=== PATIENT | male | born 1945 | race Caucasian/White ===

== ENCOUNTER 2020-02-25 16:38 | Emergency (ER) | payer MEDICARE, SELFPAY ==
--- NOTE | 2020-02-25 16:46 | ECG_ITS ---
APPROVED REPORT Exam: Resting ECG HR:74 bpm ECG Measurements Heart Rate 74 AXES WV 170 P 33 QRSd 112 QRS -63 QT 392 T 69 QTc 435 <Conclusion> Normal sinus rhythm Left anterior fascicular block Abnormal ECG Electronically signed by : Edward Falk, 02/27/2020 18:05:45
[2020-02-25 16:48] VITALS: BP 155/68; PULSE 80; RESP 16; TEMP 36.8; O2SAT 16; BMI 36.9
--- NOTE | 2020-02-25 16:55 | XR_ITS ---
PROCEDURE: XR CHEST PORTABLE CLINICAL HISTORY: dizziness Dizziness COMPARISON: No exams were available for comparison FINDINGS: Mild cardiomegaly without failure. There are low lung volumes. The lungs are clear without infiltrates, suspicious nodules, or pleural effusions. No acute bony abnormalities. IMPRESSION: No acute findings. Dictated by: Khris Curtis MD 02/25/2020 17:50 Electronically signed by Khris Curtis MD in [facility] 02/25/2020 17:50
--- NOTE | 2020-02-25 16:56 | CT_ITS ---
PROCEDURE: CT HEAD/BRAIN WO CON CLINICAL INDICATION: dizziness Dizziness, confusion, weakness, history of stroke COMPARISON: No exams were available for comparison TECHNIQUE: Axial images obtained. All CT scans at the facility use one or more dose reduction, viz: automated exposure control, ma/kV adjustment per patient size (including targeted exams where dose is matched to indication, i.e. head), or iterative reconstruction technique. FINDINGS: No midline shift, mass effect, intracranial hemorrhage, hydrocephalus, or extra-axial fluid collection is evident. There is generalized atrophy with hypoattenuation of the periventricular white matter consistent with microangiopathic changes. The calvarium has an unremarkable appearance. No mastoid effusion. No sinus air-fluid level. There is a nodular soft tissue density in the right parietal scalp at approximately 1 cm IMPRESSION: 1. No acute intracranial findings. 2. Soft tissue density in the right parietal scalp nonspecific and could be related to scarring. Neoplasm or contusion is included in the differential diagnosis. Dictated by: Khris Curtis MD 02/25/2020 22:27 Electronically signed by Khris Curtis MD in [facility] 02/25/2020 22:27
[2020-02-25 16:59] VITALS: BP 155/68; PULSE 74; O2SAT 94
[2020-02-25 17:07] LABS: Basophils % 0.6 % (0.1-2.0); Eosinophils # 0.2 K/mm3 (0.0-0.4); Eosinophils % 2.4 % (0.1-12.0); Hematocrit 47.7 % (42.0-52.0); Hemoglobin 15.7 g/dL (14.1-18.0); Lymphocytes # 2.4 K/mm3 (0.7-4.5); Lymphocytes % 29.5 % (10-50); Mean Corpuscular HGB Conc 32.9 g/dL (31.8-35.4); Mean Corpuscular Hemoglobin 29.8 pg (27.0-31.2); Mean Corpuscular Volume 90.6 fl (80-94); Mean Platelet Volume 8.2 fl (7.4-10.4); Monocytes # 0.5 K/mm3 (0.1-1.0); Monocytes % 6.6 % (1.7-9.3); Neutrophils # 4.9 K/mm3 (1.8-7.8); Platelet Count 268 K/mm3 (142-424); Red Blood Count 5.26 M/mm3 (4.60-6.20); Red Cell Distribution Width 13.6 % (11.5-17.5)
--- NOTE | 2020-02-25 17:11 | PC.NURSE ---
PT GONE OVER HEAD CT
[2020-02-25 17:14] LABS: Alanine Aminotransferase 35 U/L (12-78); Albumin Level 4.7 g/dl (3.5-5.0); Albumin/Globulin Ratio 1.5 (1.1-1.8); Alkaline Phosphatase 57 U/L (38-126); Anion Gap 14.5 mEq/L (5-15); Aspartate Amino Transferase 29 U/L (17-59); Bilirubin,Total 0.5 mg/dl (0.2-1.3); Blood Urea Nitrogen 35 mg/dl (9-20); Calcium 10.1 mg/dl (8.4-10.2); Carbon Dioxide 26 mmol/L (22.0-30.0); Chloride 101 mmol/L (98-107); Creatinine Clearance Estimated 86 mL/min (50-200); Estimated Glomerular Filt Rate 54 ml/min (>60); GFR (African American) 65 ML/MIN (>60); Globulin 3.1 g/dL (1.3-3.2); Glucose 178 mg/dl (74-100); Potassium 4.5 mmoL/L (3.5-5.1); Sodium 137 mmol/L (136-145); Total Protein,Serum 7.8 g/dl (6.3-8.2)
--- NOTE | 2020-02-25 17:27 | PC.NURSE ---
Pt returned from rad.
[2020-02-25 17:32] LABS: Troponin I < 0.01 ng/ml (0.00-0.034)
[2020-02-25 18:12] LABS: Microscopic, Urine URINE MICROSCOPIC (MICROSCOPIC)
[2020-02-25 18:26] LABS: Appearance,Urine CLEAR (Clear); Bilirubin,Urine Negative (Negative); Blood, Urine Negative (Negative); Color,Urine YELLOW (Yellow); Glucose,Urine (UA) Negative (Negative); Ketones,Urine Negative (Negative); Leukocyte Esterase,Urine Negative (Negative); Nitrate,Urine Negative (Negative); PH,Urine 5.5 (5.0-8.5); Protein,Urine Negative (Negative); Specific Gravity, Urine >= 1.030 (1.005-1.030); Urobilinogen,Urine 0.2 EU/dl (0.2)
--- NOTE | 2020-02-25 18:47 | HMH.EDDIZZ ---
ED Disposition Clinical Impression: Benign paroxysmal positional vertigo Disposition: Home, Self-Care Condition on Discharge: Good Instructions: Vertigo Referrals: Edward Miller [Primary Care Provider] - - Critical Care Critical Care Time: No Attestation: On 02/25/20, the high probability of a clinically significant, sudden or life threatening deterioration of the following system(s) required my full and direct attention, intervention and personal management. The time I documented below is in addition to time spent performing reported procedures but includes the following listed in this critical care notation. Medical Decision Making - Medical Records Medical records reviewed: Yes: I reviewed the patient's medical records. - Mannie Inquiry Pt receiving controlled substance: No Vital Signs: 02/25/20 16:48 02/25/20 16:59 Temperature 98.2 F Temperature Source Oral Pulse Rate [Left Radial] 80 74 Respiratory Rate 16 Blood Pressure [Right Arm] 155/68 H 155/68 H Blood Pressure Mean [Right Arm] 97 97 Blood Pressure Source [Right Arm] Automatic Cuff Blood Pressure Position [Right Arm] Sitting Sitting 02 Sat by Pulse Oximetry 16 L 94 L Oxygen Delivery Method Room Air Room Air - Lab Data Lab results reviewed: Yes: I reviewed the patient's lab results. Lab Results 02/25/20 16:50: WBC 8.0, RBC 5.26, Hgb 15.7, Hct 47.7, MCV 90.6, MCH 29.8, MCHC 32.9, RDW 13.6, Plt Count 268, MPV 8.2, Neut % (Auto) 61.0, Lymph % (Auto) 29.5, [place] % (Auto) 6.6, Eos % (Auto) 2.4, Baso % (Auto) 0.6, Neut # (Auto) 4.9, Lymph # (Auto) 2.4, [place] # (Auto) 0.5, Eos # (Auto) 0.2, Baso # (Auto) 0.0 02/25/20 16:50: Sodium 137, Potassium 4.5, Chloride 101, Carbon Dioxide 26, Anion Gap 14.5, BUN 35 H, Creatinine 1.30 H, Estimated Creat Clear 86, Estimated GFR 54 L, Est GFR ( Amer) 65, Glucose 178 H, Calcium 10.1, Total Bilirubin 0.5, AST 29, ALT 35, Alkaline Phosphatase 57, Troponin I < 0.01, Total Protein 7.8, Albumin 4.7, Globulin 3.1, Albumin/Globulin Ratio 1.5 02/25/20 17:55: Urine Color Yellow, Urine Appearance Clear, Urine pH 5.5, Ur Specific [place] >= 1.030, Urine Protein Negative, Urine Glucose (UA) Negative, Urine Ketones Negative, Urine Blood Negative, Urine Nitrate Negative, Urine Bilirubin Negative, Urine Urobilinogen 0.2, Ur Leukocyte Esterase Negative Result diagrams: 02/25/20 16:50 02/25/20 16:50 Orders (Tests/Meds): ORDERS Category Date Time Status CT head/brain wo con Stat Cat Scan 02/25/20 16:56 Taken Troponin I Q3H Lab 02/25/20 20:00 Ordered Troponin I Q3H Lab 02/25/20 23:00 Ordered Urinalysis and Microscopic Stat Lab 02/25/20 17:55 Results - CT Data CT Scan: Head Time Received: 16:00 Preliminary Findings: Normal/NAD - ECG Data Tracing #1 Normal Sinus Rhythm: Yes Dizzy HPI - General Chief Complaint: Dizziness Stated Complaint: dizzy,confussed Time Seen by Provider: 02/25/20 16:38 Mode of Arrival: Ambulatory Limitations: No Limitations Description of Symptoms (Recalled from ER Triage Doc. by RN): to ed per pvt car with c/o dizziness lightheaded pt seen by dr miller yesterday and given script for antivert. pt states he felt like the medication helped yesterday but has had no relief today. pt states today he was trying to remove a gas cap, became confused wasn't sure how to turn the cap then became dizzy. denies any other c/o at present. - History of Present Illness HPI Narrative: 4-year-old gentleman presents the ED with lightheadedness and dizziness. He states he was seen by his primary care and they sent him here to get evaluated. Is Dr. Gabriel did give him meclizine yesterday and he is only taken 1 tablet and really has not noticed a difference in the lightheadedness or dizziness. He does not complain of a vertigo sensation does not feel drawn towards the center of the room and nothing feels like it spinning he just feels that he is lightheaded and he describes it as a
[2020-02-25 18:50] LABS: Bacteria,Urine Trace /lpf; Squamous Epithelial Cell,Urine Occasional #/hpf (0-5); WBC,Urine Occasional #/hpf (0-3)
[2020-02-25 18:58] VITALS: BP 111/71; PULSE 76; RESP 20; TEMP 36.6; O2SAT 97
== END 2020-02-25 19:00 | disposition home or self-care (01) ==
PROVIDERS: Emergency Provider Family Medicine; PCP Internal Medicine
DX: H81.10 Benign paroxysmal vertigo, unspecified ear (principal); I10 Essential (primary) hypertension; E11.9 Type 2 diabetes mellitus without complications; Z79.84 Long term (current) use of oral hypoglycemic drugs; Z79.899 Other long term (current) drug therapy
CPT/HCPCS: 70450; 71045; 80053; 81001; 84484; 85025; 93005; 99284

== ENCOUNTER → 2021-06-07 10:47 | Outpatient (CLI) | payer MEDICARE, SELFPAY ==
--- NOTE | 2021-06-07 10:52 | XR_ITS ---
PROCEDURE: XR KNEE LT 3V CLINICAL INDICATION: LT KNEE PAIN COMPARISON: No exams were available for comparison FINDINGS: No fracture or dislocation. No lytic or blastic change. There is normal mineralization. There are mild tricompartmental osteoarthritic changes with slight decrease in the joint space and small osteophytes. There may be a small suprapatellar effusion. Other findings:None. IMPRESSION: Mild osteoarthritis Dictated by: Khris Curtis MD 06/07/2021 11:15 Khris Curtis MD in [facility] 06/07/2021 11:15
== END ==
PROVIDERS: PCP Internal Medicine; Visit Provider Internal Medicine
DX: M25.562 Pain in left knee (principal)
CPT/HCPCS: 73562

== ENCOUNTER 2021-09-20 14:00 | Emergency (ER) | payer MEDICARE, SELFPAY ==
--- NOTE | 2021-09-20 14:17 | XR_ITS ---
PROCEDURE: XR HIP LT 2-3V W/PELVIS CLINICAL INDICATION: PAIN COMPARISON: No exams were available for comparison FINDINGS: No fracture or dislocation is evident. No significant degenerative change. No lytic or blastic change. Unremarkable soft tissues. IMPRESSION: Negative left hip Dictated by: Khris Curtis MD 09/20/2021 15:02 Khris Curtis MD in [facility] 09/20/2021 15:02
[2021-09-20 14:41] VITALS: BP 160/92; PULSE 73; RESP 19; TEMP 37; O2SAT 98; BMI 35.8
--- NOTE | 2021-09-20 15:24 | HMH.EDUTC ---
[facility] [place] Clinical Impression: Hip pain Disposition: Home, Self-Care Condition on Discharge: Good Instructions: Help for Hip Pain, DI for Hip Pain Additional Instructions: *Remember you had a Toradol shot in the clinic today, which is similar to Motrin no motrin tonight *Not additional anti-inflammatory like motrin, aleve, advil with the above amount of ibuprofen. You can still take Tylenol every 4 hours as needed if you need something else for pain *Ice 20 minutes every 2 hours for the first 48 hours after the initial injury followed by moist heat every 20 minutes 3-4 times a day to affected area *Keep this area active, no movement leads to more stiffness, However take it easy and avoid heavy lifting pushing or pulling *Follow up with you family doctor if no improvement for further treatment Follow up with your Family Doctor if no improvement Referrals: Edward Falk [Primary Care Provider] - As needed Time of Disposition: 16:25 Medical Decision Making - Mannie Inquiry Pt receiving controlled substance: No Mannie was queried for this patient: No Vital Signs: 09/20/21 14:41 09/20/21 16:36 Temperature 98.6 F 98.6 F Temperature Source Oral Oral Pulse Rate 73 Pulse Rate [Left Radial] 73 Respiratory Rate 19 19 Blood Pressure 160/92 H Blood Pressure [Right Arm] 160/92 H Blood Pressure Mean [Right Arm] 114 Blood Pressure Source [Right Arm] Automatic Cuff Blood Pressure Position [Right Arm] Sitting 02 Sat by Pulse Oximetry 98 Oxygen Delivery Method Room Air Room Air Orders (Tests/Meds): ED MEDICATIONS Discontinued Medications Generic Name Dose Route Start Last Admin Trade Name Kevin PRN Reason Stop Dose Admin Ketorolac Tromethamine 15 mg 09/20/21 16:23 09/20/21 16:30 Ketorolac 60mg/2ml Vial IM 09/20/21 16:24 15 mg ONCE ONE Administration Methylprednisolone Sodium Succinate 62.5 mg 09/20/21 16:23 09/20/21 16:30 Methylprednisolone Sod Succ 125mg Vial IM 09/20/21 16:24 62.5 mg ONCE ONE Administration - Radiology Data #1 Image(s): Hip Image Reviewed: Yes I have reviewed radiologist's interpretation Negative left hip Medical Decision Narrative: Patient states that he has naproxen at home that he was given from his PCP and will take that until he can get into his PCP Patient states that pain is much better after injection [facility] [place] HPI - General Stated complaint: lt hip pain Time Seen by Provider: 09/20/21 15:24 Mode of Arrival: Ambulatory Source of Information: Patient Limitations: No Limitations Description of Symptoms (Recalled from Triage Doc. by RN): c/o pain in left hip since yesterday, denies any injury HEENT Symptoms (Recalled from RN notes): No Resp Symptoms (Recalled from RN notes): No Skin Symptoms (Recalled from RN notes): No MS Symptoms (Recalled from RN notes): Yes Functional Status (Recalled from RN notes): na - History of Present Illness Provider Complaint: Patient states that he has been walking alot over the last week or so he has been hunting and not sure if he has over done it State that he has been having pain on and off in his left hip denies known injury State that he took some over the counter medicaiton and it was doing better but earlier he bent over and was squatted down and it started hurting again so he came in to get it checked out Denies falling denies loss of control of bowel or bladder - Related Data Home Medications Medication Instructions Recorded Confirmed atenolol 25 mg tablet 25 mg PO DAILY tab 05/27/18 02/03/19 atorvastatin 80 mg tablet 80 mg PO DAILY tab 05/27/18 02/03/19 clopidogrel 75 mg tablet 75 mg PO DAILY tab 05/27/18 02/03/19 fluticasone propionate 50 1 spray INTRANASAL DAILY g 05/27/18 02/03/19 mcg/actuation nasal spray,suspension glipizide 10 mg tablet 10 mg PO BID 05/27/18 02/03/19 hydrochlorothiazide 25 mg tablet 25 mg PO QAM 05/27/18 02/03/19 insulin glargine 100 unit/mL 36 unit SUB-Q QHS m
[2021-09-20 16:36] VITALS: BP 160/92; PULSE 73; RESP 19; TEMP 37; O2SAT 98
== END 2021-09-20 16:44 | disposition home or self-care (01) ==
LOC: ER 14:05 → UTC 14:15
PROVIDERS: Emergency Provider Nurse Practitioner; PCP Internal Medicine
DX: M25.552 Pain in left hip (principal); E11.9 Type 2 diabetes mellitus without complications; I10 Essential (primary) hypertension
CPT/HCPCS: G0463; 73502; 96372; 99202

== ENCOUNTER 2021-10-02 10:05 | Emergency (ER) | payer MEDICARE, SELFPAY ==
[2021-10-02 10:05] VITALS: BP 162/72; PULSE 62; RESP 18; TEMP 36.6; O2SAT 98; BMI 35.8
--- NOTE | 2021-10-02 10:19 | HMH.EDGENADL ---
ED Disposition Clinical Impression: Vasovagal syncope Sacral fracture Qualifiers: Encounter type: initial encounter Zone of sacrum fracture: unspecified portion of sacrum Fracture type: closed Qualified Code(s): S32.10XA - Unspecified fracture of sacrum, initial encounter for closed fracture Disposition: Home, Self-Care Condition on Discharge: Fair Instructions: DI for Syncope in Adults (Fainting), DI for Vertebral Fracture Additional Instructions: Take Percocet as needed for pain. Sit on a couple of pillows, try to lay on your side to avoid pressure on your tailbone. See your doctor in the office this week. Return to the emergency department if fainting returns. Additional instructions for CONTROLLED SUBSTANCES: You have been prescribed a medication that is a controlled substance. Controlled substances include pain medications known as opiates and sedative nerve medications known as benzodiazepines. Tramadol, fioricet, and gabapentin are also controlled substances. Some common opiates include: Codeine (such as Tylenol #3) Hydrocodone (Vicodin, Lortab, Lorcet, [place]) Oxycodone (Percocet, Percodan, Oxycodone, Oxy IR) Some common benzodiazepines include: Diazepam (Valium) Lorazepam (Ativan) Alprazolam (Xanax) Clonazepam (Klonopin) Oxazepam (Serax) All of these controlled substances are highly addictive and frequently abused. Misuse can and frequently does lead to addiction as well as overdose and . Medication should be stored in a locked cabinet or other secure storage unit. Do not store the medication in a motor vehicle. Short term supplies, 3 days or less, are prescribed because of the highly addictive nature of the medication. Any of the controlled substance medication NOT taken should be disposed of properly and NOT SAVED. The recommended method of disposing of unused medications is: Place the medicines in a sealable plastic bag. If the medicine is a solid, crush it or add water to dissolve it. Add something undesirable (cat litter, coffee grounds, etc.) Dispose of sealed bag in household trash Do not flush or pour unused medicines down a sink or drain. Controlled substances should not be shared, given away or sold. Because of the addictive nature and frequent abuse, these medications are sometimes stolen. These medications should be kept in a safe place where they cannot be stolen. Do not keep them in your car or purse. Lost or stolen prescriptions for controlled substances WILL NOT BE REFILLED in this emergency department, regardless of whether a police report was filed. Prescriptions: Oxycodone HCl/Acetaminophen [Percocet 5/325mg tablet] 1 tab PO Q6HP PRN #15 tab PRN Reason: Moderate To Severe Pain Transmission Status: Sent to [facility] Referrals: Provider,Referral, [Referring] - - Critical Care Critical Care Time: No Attestation: On , the high probability of a clinically significant, sudden or life threatening deterioration of the following system(s) required my full and direct attention, intervention and personal management. The time I documented below is in addition to time spent performing reported procedures but includes the following listed in this critical care notation. Medical Decision Making - Mannie Inquiry Pt receiving controlled substance: Yes Mannie was queried for this patient: Yes Risks and benefits of using a controlled substance: were discussed with pt by me Vital Signs: 10/02/21 10:05 Temperature 98 F Temperature Source Oral Pulse Rate [Radial] 62 Respiratory Rate 18 Blood Pressure [Right Arm] 162/72 H Blood Pressure Mean [Right Arm] 102 Blood Pressure Position [Right Arm] Sitting 02 Sat by Pulse Oximetry 98 Oxygen Delivery Method Room Air - Lab Data Lab Results 10/02/21 10:22: WBC 12.3 H, RBC 5.58, Hgb 16.4, Hct 52.0, MCV 93.1, MCH 29.3, MCHC 31.5 L, RDW 13.9, Plt Count 325, MPV 8.5, Neut % (Auto) 72.9, Lymph % (
--- NOTE | 2021-10-02 10:21 | XR_ITS ---
PROCEDURE INFORMATION: Exam: XR Chest Exam date and time: 10/02/2021 10:21 AM Age: 75 years old Clinical indication: Shortness of breath; Additional info: ? Syncopal epi TECHNIQUE: Imaging protocol: XR of the chest. Views: 1 view. COMPARISON: CR XR CHEST PORTABLE 02/25/2020 5:01 PM FINDINGS: Lungs: Low lung volumes with no focal airspace disease. Pleural spaces: Unremarkable. No pleural effusion. No pneumothorax. Heart/Mediastinum: Cardiomediastinal silhouette is within normal limits. Bones/joints: Unremarkable. IMPRESSION: Low lung volumes with no acute cardiopulmonary abnormality.
--- NOTE | 2021-10-02 10:23 | ECG_ITS ---
APPROVED REPORT Exam: Resting ECG HR:60 bpm ECG Measurements Heart Rate 60 AXES [place] 170 P 54 QRSd 128 QRS -79 QT 430 T 37 QTc 430 Conclusion Sinus rhythm with premature atrial complexes Left axis deviation Nonspecific intraventricular block Abnormal ECG Electronically signed by : Thomas Stephenson MD 10/02/2021 15:34:55
[2021-10-02 10:30] VITALS: BP 136/67; PULSE 67
--- NOTE | 2021-10-02 10:30 | PC.NURSE ---
PT WRITHING ON STRETCHER, DIAPHORETIC. C/O INCREASE PAIN.
--- NOTE | 2021-10-02 10:30 | CT_ITS ---
PROCEDURE INFORMATION: Exam: CT Lumbar Spine Without Contrast Exam date and time: 10/02/2021 10:30 AM Age: 75 years old Clinical indication: Low back pain TECHNIQUE: Imaging protocol: Computed tomography images of the lumbar spine without contrast. Radiation optimization: All CT scans at this facility use at least one of these dose optimization techniques: automated exposure control; mA and/or kV adjustment per patient size (includes targeted exams where dose is matched to clinical indication); or iterative reconstruction. COMPARISON: CR XR HIP LT 2-3V W/PELVIS 09/20/2021 2:16 PM FINDINGS: Vertebrae: Within normal limits. Discs/Spinal canal/Neural foramina: Degenerative changes produce at least moderate spinal canal stenosis at L4-L5 and mild to moderate canal stenosis at T11-T12. At least moderate bilateral foraminal stenosis at L3-L4 and L4-L5. Sacrum/coccyx: Acute appearing nondisplaced fracture involving the posterior spinous process of the sacrum at the level of S2-S3. No traumatic malalignment. Soft tissues: Unremarkable. IMPRESSION: 1. Acute appearing nondisplaced fracture involving the posterior spinous process of the sacrum at the level of S2-S3. 2. Degenerative changes produce at least moderate spinal canal stenosis at L4-L5 and at least moderate neural foraminal stenosis bilaterally at L3-L4 and L4-L5.
[2021-10-02 10:34] LABS: Basophils # 0.1 K/mm3 (0-0.2); Basophils % 0.9 % (0.1-2.0); Eosinophils # 0.2 K/mm3 (0.0-0.4); Eosinophils % 1.2 % (0.1-12.0); Hemoglobin 16.4 g/dL (14.1-18.0); Lymphocytes # 2.5 K/mm3 (0.7-4.5); Lymphocytes % 19.8 % (10-50); Mean Corpuscular HGB Conc 31.5 g/dL (31.8-35.4); Mean Corpuscular Hemoglobin 29.3 pg (27.0-31.2); Mean Corpuscular Volume 93.1 fl (80-94); Mean Platelet Volume 8.5 fl (7.4-10.4); Monocytes # 0.6 K/mm3 (0.1-1.0); Monocytes % 5.2 % (1.7-9.3); Neutrophils % 72.9 % (37.0-80.0); Platelet Count 325 K/mm3 (142-424); Red Blood Count 5.58 M/mm3 (4.60-6.20); Red Cell Distribution Width 13.9 % (11.5-17.5); White Blood Count 12.3 K/mm3 (4.8-10.8)
[2021-10-02 10:38] LABS: Chloride 96 mmol/L (98-107); Sodium 134 mmol/L (136-145)
--- NOTE | 2021-10-02 10:39 | CT_ITS ---
PROCEDURE INFORMATION: Exam: CT Abdomen And Pelvis With Contrast Exam date and time: 10/02/2021 10:39 AM Age: 75 years old Clinical indication: Injury or trauma; Fall; Blunt; Lower; Additional info: Injury from fall- patient passed out at home -- back pain and chest pain TECHNIQUE: Imaging protocol: Computed tomography of the abdomen and pelvis with contrast. Radiation optimization: All CT scans at this facility use at least one of these dose optimization techniques: automated exposure control; mA and/or kV adjustment per patient size (includes targeted exams where dose is matched to clinical indication); or iterative reconstruction. Contrast material: ISOVUE; Contrast volume: 50 ml; Contrast route: IV; COMPARISON: CR XR HIP LT 2-3V W/PELVIS 09/20/2021 2:16 PM FINDINGS: Liver: Normal. No mass. Gallbladder and bile ducts: Normal. No calcified stones. No ductal dilation. Pancreas: Normal. No ductal dilation. Spleen: Normal. No splenomegaly. Adrenal glands: Normal. No mass. Kidneys and ureters: Normal. No hydronephrosis. Stomach and bowel: Unremarkable. No obstruction. No mucosal thickening. Appendix: No evidence of appendicitis. Intraperitoneal space: Unremarkable. No free air. No significant fluid collection. Vasculature: Mild burden of atherosclerotic plaque in the abdominal aorta and branch vessels. No aneurysm. Lymph nodes: Unremarkable. No enlarged lymph nodes. Urinary bladder: Unremarkable as visualized. Reproductive: Prostatomegaly. Bones/joints: Redemonstrated acute fracture involving the posterior spinous process of the sacrum, better evaluated on CT of the lumbar spine. Soft tissues: Small left inguinal hernia containing fat and a portion of the bladder dome. Gynecomastia. IMPRESSION: 1. No acute findings in the abdomen or pelvis. 2. Redemonstrated acute fracture involving the posterior spinous process of the sacrum, better evaluated on CT of the lumbar spine. 3. Small left inguinal hernia contains a portion of the bladder dome.
--- NOTE | 2021-10-02 10:40 | CT_ITS ---
PROCEDURE INFORMATION: Exam: CTA Chest With Contrast Exam date and time: 10/02/2021 10:40 AM Age: 75 years old Clinical indication: Injury or trauma; Fall; Blunt trauma (contusions or hematomas); Injury date: 10/02/21; Additional info: Chest injury from fall-- passed out and fell- pain in lower back and chest TECHNIQUE: Imaging protocol: Computed tomographic angiography of the chest with contrast. 3D rendering (Not supervised by radiologist): MIP and/or 3D reconstructed images were created by the technologist. Radiation optimization: All CT scans at this facility use at least one of these dose optimization techniques: automated exposure control; mA and/or kV adjustment per patient size (includes targeted exams where dose is matched to clinical indication); or iterative reconstruction. Contrast material: ISOVUE; Contrast volume: 50 ml; Contrast route: INTRAVENOUS (IV); COMPARISON: CR XR CHEST PORTABLE 10/02/2021 10:32 AM FINDINGS: Pulmonary arteries: Normal. No pulmonary emboli. Aorta: Unremarkable. No aortic aneurysm. No aortic dissection. Lungs: Left lower lobe calcified granuloma. Right upper lobe calcified granuloma. No focal airspace disease. Pleural spaces: Unremarkable. No pneumothorax. No pleural effusion. Heart: Unremarkable. No cardiomegaly. No pericardial effusion. Lymph nodes: Calcified left hilar lymph node. Bones/joints: Unremarkable. No acute fracture. Soft tissues: Unremarkable. IMPRESSION: No pulmonary emboli or other acute cardiopulmonary pathology identified.
[2021-10-02 10:42] LABS: Blood Urea Nitrogen 45 mg/dl (9-20); Calcium 9.7 mg/dl (8.4-10.2); Carbon Dioxide 30 mmol/L (22.0-30.0); Creatinine Clearance Estimated 82 mL/min (50-200); Estimated Glomerular Filt Rate 54 ml/min (>60); GFR (African American) 65 ML/MIN (>60); Glucose 212 mg/dl (74-100)
--- NOTE | 2021-10-02 10:45 | ECG_ITS ---
APPROVED REPORT Exam: Resting ECG HR:57 bpm ECG Measurements Heart Rate 57 AXES MD 156 P QRSd 126 QRS -69 QT 434 T 21 QTc 422 Conclusion Sinus bradycardia Left axis deviation Nonspecific intraventricular block Abnormal ECG Electronically signed by : Thomas Stephenson MD 10/02/2021 15:34:46
--- NOTE | 2021-10-02 10:46 | CT_ITS ---
PROCEDURE INFORMATION: Exam: CT Head Without Contrast Exam date and time: 10/02/2021 10:46 AM Age: 75 years old Clinical indication: Syncope and collapse; Additional info: Syncope, fall TECHNIQUE: Imaging protocol: Computed tomography of the head without contrast. Radiation optimization: All CT scans at this facility use at least one of these dose optimization techniques: automated exposure control; mA and/or kV adjustment per patient size (includes targeted exams where dose is matched to clinical indication); or iterative reconstruction. COMPARISON: CT HEAD/BRAIN WO CON 02/25/2020 5:09 PM FINDINGS: Brain: Patchy hypoattenuation in the periventricular and subcortical white matter, consistent with chronic small vessel ischemia. No CT evidence of acute ischemia. No acute hemorrhage. No mass effect. Areas of low density in the left frontal and right parietal lobes are favored to reflect areas of remote encephalomalacia, though are new from 02/25/2020. Cerebral ventricles: No ventriculomegaly. Paranasal sinuses: Visualized sinuses are unremarkable. No fluid levels. Mastoid air cells: Visualized mastoid air cells are well aerated. Bones/joints: Unremarkable. No acute fracture. Soft tissues: Unremarkable. IMPRESSION: 1. No acute intracranial abnormality. Please note that MRI is more sensitive for early changes of acute ischemia. 2. Areas of low density in the left frontal and right parietal lobes are favored to reflect areas of remote encephalomalacia, though are new from 02/25/2020.
[2021-10-02 10:55] LABS: Troponin I < 0.01 ng/ml (0.00-0.034)
[2021-10-02 11:00] VITALS: BP 136/67; PULSE 68
[2021-10-02 11:23] LABS: POC Glucose,Bedside 215 (70-110)
[2021-10-02 12:15] VITALS: BP 166/74; PULSE 61; RESP 18
[2021-10-02 13:00] VITALS: BP 120/69; PULSE 58
--- NOTE | 2021-10-02 13:09 | PC.NURSE ---
PT AMBULATED UP TO THE BATHROOM WITH NO PROBLEMS
[2021-10-02 14:16] VITALS: BP 157/70; PULSE 66; RESP 18; TEMP 36.6
[2021-10-02 17:13] LABS: Troponin I < 0.01 ng/ml (0.00-0.034)
== END 2021-10-02 15:21 | disposition home or self-care (01) ==
PROVIDERS: Emergency Provider Emergency Medicine; PCP Internal Medicine
DX: S32.10XA Unspecified fracture of sacrum, initial encounter for closed fracture (principal); R42 Dizziness and giddiness; W01.0XXA Fall on same level from slipping, tripping and stumbling without subsequent striking against object, initial encounter; Y92.018 Other place in single-family (private) house as the place of occurrence of the external cause; I10 Essential (primary) hypertension; E11.9 Type 2 diabetes mellitus without complications
CPT/HCPCS: 70450; 71045; 71275; 72131; 74177; 80048; 82962; 84484; 85025; 93005; 93041; 96374; 96375; 96376; 99283; J2405; Q9967

== ENCOUNTER → 2022-09-26 10:49 | Outpatient (CLI) | payer MEDICARE, SELFPAY ==
--- NOTE | 2022-09-26 10:56 | XR_ITS ---
FINAL REPORT TECHNIQUE: Chest PA & Lateral CLINICAL HISTORY: RIGHT CHEST PAIN , S/P FALL 09/24/22, patient states he had a thermos in his shirt and he fell on that, pain on anterior right lower and into side FINDINGS: 2 views of the chest were performed. The heart size is normal. The mediastinum is within normal limits. The lungs are underinflated. There is no acute cardiopulmonary process. There are no pleural effusions. There is no pneumothorax. The bony thorax appears intact. IMPRESSION: No acute cardiopulmonary process. Reviewed, Interpreted and Dictated by Prabhakar Navarrete MD Transcribed by Guero Multani Authenticated and [facility]
--- NOTE | 2022-09-26 10:57 | XR_ITS ---
FINAL REPORT CLINICAL HISTORY: RIGHT CHEST PAIN , S/P FALL 09/24/22, patient states he had a thermos in his shirt and he fell on that, pain on anterior right lower and into side FINDINGS: Three views of the right ribs were obtained. There is no acute fracture. The visualized lungs are clear. No pneumothorax is identified. IMPRESSION: No rib fracture or pneumothorax identified. Reviewed, Interpreted and Dictated by Prabhakar Navarrete MD Transcribed by Guero Multani Authenticated and [facility]
== END ==
PROVIDERS: PCP Internal Medicine; Visit Provider Internal Medicine
DX: R07.9 Chest pain, unspecified (principal)
CPT/HCPCS: 71046; 71100

== ENCOUNTER 2023-05-23 10:23 | Inpatient (IN) | payer OTHER, MEDICARE, SELFPAY ==
[2023-05-23] VITALS (10 sets, daily range): BP systolic 141–195; BP diastolic 63–90; PULSE 51–80; RESP 16–18; TEMP 36.4–37; O2SAT 95–98; BMI 34.8; BMI 35.0
--- NOTE | 2023-05-23 10:24 | ECG_ITS ---
APPROVED REPORT Exam: Resting ECG HR:76 bpm ECG Measurements Heart Rate 76 AXES KS 169 P 46 QRSd 120 QRS -64 QT 408 T 15 QTc 439 Conclusion SINUS RHYTHM LEFT ANTERIOR FASCICULAR BLOCK [QRS AXIS <= -45, QR IN I, RS IN II] ABNORMAL ECG UNCONFIRMED REPORT Electronically signed by : Thomas Stephenson MD 05/24/2023 21:37:30
--- NOTE | 2023-05-23 10:36 | CT_ITS ---
FINAL REPORT CLINICAL HISTORY: stroke protocol, difficulty with speech and swallowing COMPARISON: 10/02/2021 FINDINGS: Axial images of the head were obtained without contrast. Coronal reformatted images were also obtained. This study was performed with techniques to keep radiation doses as low as reasonably achievable (ALARA). Individualized dose reduction techniques using automated exposure control or adjustment of mA and/or kV according to the patient's size were employed. There is generalized age appropriate atrophy. There are mild chronic ischemic changes. Areas of bilateral encephalomalacia are stable. There is no evidence of intracranial hemorrhage or mass. The ventricular size is within normal limits. There is no evidence of shift of the midline structures. No skull abnormality is seen on the bone window images. IMPRESSION: No acute intracranial abnormality. Reviewed, Interpreted and Dictated by Danilo Velasquez III, MD Transcribed by Camilla Whaley Authenticated and [facility]
--- NOTE | 2023-05-23 10:37 | XR_ITS ---
FINAL REPORT CLINICAL HISTORY: cva COMPARISON: 09/26/2022 FINDINGS: A single portable view of the chest was obtained. The heart size and pulmonary vascularity are within normal limits. The mediastinum is within normal limits. No acute pulmonary abnormality is identified. The bony thorax is intact. IMPRESSION: No active cardiopulmonary disease. Reviewed, Interpreted and Dictated by Danilo Velasquez III, MD Transcribed by Camilla Whaley Authenticated and [facility]
[2023-05-23 10:43] LABS: Basophils # 0.1 K/mm3 (0-0.2); Basophils % 0.7 % (0.1-2.0); Eosinophils # 0.4 K/mm3 (0.0-0.4); Eosinophils % 4.6 % (0.1-12.0); Hematocrit 43.9 % (42.0-52.0); Hemoglobin 14.2 g/dL (14.1-18.0); Lymphocytes # 2.3 K/mm3 (0.7-4.5); Lymphocytes % 26.1 % (10-50); Mean Corpuscular HGB Conc 32.4 g/dL (31.8-35.4); Mean Corpuscular Volume 89.5 fl (80-94); Mean Platelet Volume 8.4 fl (7.4-10.4); Monocytes # 0.6 K/mm3 (0.1-1.0); Monocytes % 6.8 % (1.7-9.3); Neutrophils # 5.5 K/mm3 (1.8-7.8); Neutrophils % 61.8 % (37.0-80.0); Platelet Count 224 K/mm3 (142-424); Red Blood Count 4.91 M/mm3 (4.60-6.20); Red Cell Distribution Width 13.9 % (11.5-17.5); White Blood Count 8.9 K/mm3 (4.8-10.8)
[2023-05-23 10:47] LABS: Chloride 102 mmol/L (98-107); Sodium 140 mmol/L (136-145)
[2023-05-23 10:48] LABS: Potassium 4.3 mmoL/L (3.5-5.1)
[2023-05-23 10:50] LABS: Alanine Aminotransferase 68 U/L (12-78); Albumin Level 4.3 g/dl (3.5-5.0); Albumin/Globulin Ratio 1.3 (1.1-1.8); Alkaline Phosphatase 67 U/L (38-126); Anion Gap 11.3 mEq/L (5-15); Aspartate Amino Transferase 51 U/L (17-59); Bilirubin,Total 0.6 mg/dl (0.2-1.3); Blood Urea Nitrogen 23 mg/dl (9-20); Calcium 9.5 mg/dl (8.4-10.2); Carbon Dioxide 31 mmol/L (22.0-30.0); Creatinine Clearance Estimated 84 mL/min (50-200); Estimated Glomerular Filt Rate 59 ml/min (>60); GFR (African American) 71 ML/MIN (>60); Globulin 3.2 g/dL (1.3-3.2); Glucose 133 mg/dl (74-100); Total Protein,Serum 7.5 g/dl (6.3-8.2)
--- NOTE | 2023-05-23 11:11 | CT_ITS ---
FINAL REPORT TECHNIQUE: Thin section axial CT with IV contrast supplemented with multiplanar reconstruction under CT angiogram protocol. 3-D reconstructions were performed. This study was performed with techniques to keep radiation doses as low as reasonably achievable (ALARA). Individualized dose reduction techniques using automated exposure control or adjustment of mA and/or kV according to the patient''s size were employed. CLINICAL HISTORY: cva FINDINGS: No aneurysm is seen. Major intracranial vessels are patent without significant stenosis. IMPRESSION: Unremarkable intracranial CT angiogram Reviewed, Interpreted and Dictated by Danilo Velasquez III, MD Transcribed by Chio Russ Authenticated and [facility]
--- NOTE | 2023-05-23 11:11 | CT_ITS ---
FINAL REPORT TECHNIQUE: Thin section axial CT with IV contrast supplemented with multiplanar reconstruction under CT angiogram protocol. This study was performed with techniques to keep radiation doses as low as reasonably achievable (ALARA). Individualized dose reduction techniques using automated exposure control or adjustment of mA and/or kV according to the patient''s size were employed. NASCET criteria was utilized during interpretation. CLINICAL HISTORY: cva FINDINGS: Aortic arch: Arch shows no significant narrowing. Great vessel origins are widely patent. Right carotid: There is heavily calcified plaque in the proximal internal carotid artery that produces approximately 60% luminal diameter stenosis. Left carotid: No significant stenosis is seen of the cervical common or internal carotid artery. Vertebral: The vertebral arteries are codominant. No significant stenosis is present. IMPRESSION: Heavily calcified plaque in the proximal internal carotid artery on the right side, producing approximately 60% luminal diameter stenosis. Recommend MR angiography or catheter angiography for further evaluation if indicated. Reviewed, Interpreted and Dictated by Danilo Velasquez III, MD Transcribed by Chio Russ Authenticated and [facility]
[2023-05-23 11:23] LABS: INR 0.95 (0.9-1.1); Prothrombin Time 10.3 seconds (10.1-12.5)
--- NOTE | 2023-05-23 11:29 | HMH.ITSTN ---
Went to get patient at 11:20 and he informed me of a bad reaction to contrast given for MRI. He said he was told not to get it again. I checked with the ER doctor and he told me that they would premedicate and call me when he is ready
--- NOTE | 2023-05-23 11:54 | HMH.ITSTN ---
ER called at 11:45 and said that patient had been premedicated and would be ready for ct scan at 12:10
--- NOTE | 2023-05-23 12:15 | HMH.EDGENADL ---
Discharge Plan Disposition Patient Disposition: Admitted Condition: Good Chief Complaint: Neuro Symptoms/Deficit Prescriptions Prescriptions: No Action insulin glargine [Lantus U-100 Insulin] 100 unit/mL solution 36 unit SUB-Q QHS lisinopril 40 mg tablet 40 mg PO DAILY hydrochlorothiazide 25 mg tablet 25 mg PO QAM levothyroxine [Synthroid] 75 mcg tablet 75 mcg PO DAILY atenolol 25 mg tablet 25 mg PO DAILY atorvastatin 80 mg tablet 80 mg PO DAILY glipizide 10 mg tablet 10 mg PO BID metformin 1,000 mg tablet 1,000 mg PO BID clopidogrel [Plavix] 75 mg tablet 75 mg PO DAILY ranitidine HCl 150 mg capsule 150 mg PO BID fluticasone propionate [Flonase Allergy Relief] 50 mcg/actuation spray,suspension 1 spray INTRANASAL DAILY diclofenac sodium [Voltaren] 1 % gel 2 g TOPICAL QID PRN (Reason: pain) Qty: 100 0RF Rx Instructions: apply to single elbow, wrist or hand; for hand includes palm/fingers/back of hand prednisone 20 mg tablet 20 mg PO BID 5 Days Qty: 10 0RF Rx Instructions: administer with food or milk valacyclovir [Valtrex] 1 gram tablet 1,000 mg PO BID Qty: 14 0RF oxycodone-acetaminophen 1 EACH tablet 1 tab PO Q6HP PRN (Reason: Moderate To Severe Pain) Qty: 15 0RF Referrals Follow up/Referrals: Provider,Referral, MD [Primary Care Provider] - See instructions Clinical Impressions Clinical Impression: Acute CVA (cerebrovascular accident), Arteriosclerotic vascular disease Discharge ED Provider: Marcus Huff General Adult HPI General Chief complaint: Neuro Symptoms/Deficit Stated complaint: poss stroke Time Seen by Provider: 05/23/23 10:24 Mode of Arrival: Ambulatory Source of Information: Patient Limitations: No Limitations Description of Symptoms (Recalled from ER Triage Doc. by RN): pt to the ED with changes in speech and difficulty swallowing since midday yesterday. pt reports last night when he went to eat dinner he felt like he was having difficulty swallowing his food. pt denies any pain, swelling or numbness but stated my throat just doesnt feel like its working right on assessment pt is A&O x 4 with no unilateral weakness or facial asymmetry. pt does have mild dysarthria. History of Present Illness HPI narrative: 77yo M presents to the ER secondary to changes in his speech and mild difficulty with swallowing since 1600 yesterday. Reports history of stroke several years ago. Denies any focal weakness. Related Data Home Medications Medication Instructions Recorded Confirmed atenolol 25 mg tablet 25 mg PO DAILY 05/27/18 02/03/19 atorvastatin 80 mg tablet 80 mg PO DAILY 05/27/18 02/03/19 clopidogrel 75 mg tablet (Plavix) 75 mg PO DAILY 05/27/18 02/03/19 fluticasone propionate 50 1 spray intranasal DAILY 05/27/18 02/03/19 mcg/actuation nasal spray,suspension (Flonase Allergy Relief) glipizide 10 mg tablet 10 mg PO BID 05/27/18 02/03/19 hydrochlorothiazide 25 mg tablet 25 mg PO QAM 05/27/18 02/03/19 insulin glargine 100 unit/mL 36 unit SQ QHS 05/27/18 02/03/19 subcutaneous solution (Lantus U-100 Insulin) levothyroxine 75 mcg tablet 75 mcg PO DAILY 05/27/18 02/03/19 (Synthroid) lisinopril 40 mg tablet 40 mg PO DAILY 05/27/18 02/03/19 metformin 1,000 mg tablet 1,000 mg PO BID 05/27/18 02/03/19 ranitidine HCl 150 mg capsule 150 mg PO BID 05/27/18 02/03/19 Previous Rx's Medication Instructions Recorded diclofenac sodium 1 % topical gel 2 g topical QID PRN pain #100 grams 05/27/18 (Voltaren) prednisone 20 mg tablet 20 mg PO BID 5 days #10 tabs 02/03/19 valacyclovir 1 gram tablet 1,000 mg PO BID #14 tabs 02/03/19 (Valtrex) oxycodone-acetaminophen 5 mg-325 1 tab PO Q6HP PRN Moderate To 10/02/21 mg tablet Severe Pain #15 tabs Allergies Allergy/AdvReac Type Severity Reaction Status Date / Time No Known Allergies Allergy Verified 02/03/19 14:29 PFSH PFSH Di
--- NOTE | 2023-05-23 12:37 | HMH.ITSTN ---
When I returned the patient back to his room in the ER. I spoke with the ER nurse to let her know that the patient stated he started to fill itchy all over after he received contrast. patient was pre-medicated before exam.
--- NOTE | 2023-05-23 13:57 | PC.NURSE ---
called care management for admission
[2023-05-23 14:05] LABS: Coronavirus 19, PCR Not Detected (NotDetected); Influenza A, PCR Not Detected (NotDetected); Influenza B, PCR Not Detected (NotDetected)
[2023-05-23 14:38] LABS: Microscopic, Urine URINE MICROSCOPIC (MICROSCOPIC)
[2023-05-23 14:51] LABS: Appearance,Urine CLEAR (Clear); Bilirubin,Urine Negative (Negative); Blood, Urine Negative (Negative); Color,Urine YELLOW (Yellow); Glucose,Urine (UA) Negative (Negative); Ketones,Urine Negative (Negative); Leukocyte Esterase,Urine Negative (Negative); Nitrate,Urine Negative (Negative); PH,Urine 5.5 (5.0-8.5); Protein,Urine Negative (Negative); Specific Gravity, Urine 1.025 (1.005-1.030); Urobilinogen,Urine 0.2 EU/dl (0.2)
--- NOTE | 2023-05-23 15:00 | MR_ITS ---
FINAL REPORT CLINICAL HISTORY: R/O STROKE hx of stroke x 2 years ago COMPARISON: None's FINDINGS: Multiplanar MR imaging of the brain was performed without contrast. There is no evidence of intracranial hemorrhage or mass. There is age-appropriate atrophy. There is no evidence of shift of the midline structures. There are bilateral areas of encephalomalacia. There is a focus of restricted diffusion in the right periventricular region measuring 12 mm consistent with acute lacunar infarct. The posterior fossa and brainstem have an unremarkable appearance. Normal major vessel vascular flow voids are seen. IMPRESSION: Acute right lacunar infarct. Chronic changes. Reviewed, Interpreted and Dictated by Danilo Velasquez III, MD Transcribed by Camilla Whaley Authenticated and [facility]
--- NOTE | 2023-05-23 16:04 | PC.NURSE ---
arrived by w/c from MRI
--- NOTE | 2023-05-23 16:48 | EXP.HP ---
History of Present Illness *Admission Date: 05/23/23 *Reason for visit:: slurred speech *History of present illness: Mr. De La Garza is a 77 year old male with a past medical history of hypertension, type 2 diabetes mellitus, hyperlipidemia, hypothyroidism, cva several years ago and carotid artery stenosis (per patient he had a surgical intervention on it approximately 2 years ago.) He states that he was mowing the yard yesterday afternoon when he felt weak all over and had slurring of speech and difficulty with swallowing. Symptoms have been resolving and currently he is able to eat without issue. He denies unilateral weakness, numbness/tingling, or change in vision. Brain MRI reveals an acute right lacunar infarct and CTA neck reveals 60% stenosis of the right internal carotid artery. Initial vitals: BP 195/90 P 80 RR 16 T 98.1 F SpO2 98% RA Initial workup: EKG: NSR HR 76, LAFB, no acute ischemic changes CXR no active cardiopulmonary disease CT Head: no acute intracranial abnormality CTA Head/neck: heavily calcified plaque in the proximal internal carotid artery on the right side, producing approximately 60% luminal diameter stenosis. Brain MRI wo - Acute right lacunar infarct. Chronic changes. [facility] Disclaimer: The information contained in this section may have been updated after the patient was seen, as this information can be updated by other users. Social History Smoking Status: Never smoker alcohol intake: never substance use type: denies use current occupational status: other Travel in the last 8 weeks: None housing: other Review of Systems Review of Systems Review of systems:: pertinent systems reviewed and negative unless documented below ENT Comments: difficulty swallowing and slurred speech Meds Home Medications and Allergies Home Medications Medication Instructions Recorded Confirmed Type atenolol 25 mg tablet 25 mg PO DAILY cardivascular 05/27/18 05/23/23 History atorvastatin 80 mg tablet 80 mg PO DAILY lipitor 05/27/18 05/23/23 History clopidogrel 75 mg tablet (Plavix) 75 mg PO DAILY plaq 05/27/18 05/23/23 History diclofenac sodium 1 % topical gel 2 g topical QID PRN pain #100 grams 05/27/18 02/03/19 Rx (Voltaren) fluticasone propionate 50 1 spray intranasal DAILY allergies 05/27/18 05/23/23 History mcg/actuation nasal spray,suspension (Flonase Allergy Relief) glipizide 10 mg tablet 10 mg PO BID DM 05/27/18 05/23/23 History hydrochlorothiazide 25 mg tablet 25 mg PO QAM htn 05/27/18 05/23/23 History insulin glargine 100 unit/mL 36 unit SQ QHS 05/27/18 02/03/19 History subcutaneous solution (Lantus U-100 Insulin) levothyroxine 75 mcg tablet 75 mcg PO DAILY thyroid 05/27/18 05/23/23 History (Synthroid) lisinopril 40 mg tablet 40 mg PO DAILY htn 05/27/18 05/23/23 History metformin 1,000 mg tablet 1,000 mg PO BID Diabetes 05/27/18 05/23/23 History ranitidine HCl 150 mg capsule 150 mg PO BID 05/27/18 02/03/19 History prednisone 20 mg tablet 20 mg PO BID 5 days #10 tabs 02/03/19 02/03/19 Rx valacyclovir 1 gram tablet 1,000 mg PO BID #14 tabs 02/03/19 02/03/19 Rx (Valtrex) oxycodone-acetaminophen 5 mg-325 1 tab PO Q6HP PRN Moderate To 10/02/21 Rx mg tablet Severe Pain #15 tabs New Prescriptions to Start Prescriptions: Allergies Allergy/AdvReac Type Severity Reaction Status Date / Time No Known Allergies Allergy Verified 02/03/19 14:29 Exam Data for Last 24 hours Vital signs and Labs for Last 24 Hours: Temp Pulse Resp BP Pulse Ox O2 Del Method 98.6 F 58 L 18 172/76 H 96 Room Air 05/23/23 15:07 05/23/23 15:07 05/23/23 15:07 05/23/23 15:07 05/23/23 15:07 05/23/23 15:07 Laboratory Results - last 24 hr 05/23/23 10:20: WBC 8.9, RBC 4.91, Hgb 14.2, Hct 43.9, MCV 89.5, MCH 29.0, MCHC 32.4, RDW 13.9, Plt Count 224, MPV 8.4, Neut % (Auto) 61.8, Lymph % (Auto) 26.1, Bureau % (Auto) 6.8,
[2023-05-23 17:02] LABS: POC Glucose,Bedside 187 (70-110)
[2023-05-23 21:52] LABS: POC Glucose,Bedside 243 (70-110)
[2023-05-24] VITALS: BP 152/67; PULSE 60; RESP 18; TEMP 36.6; O2SAT 91
[2023-05-24 04:00] VITALS: BP 138/60; PULSE 61; RESP 18; TEMP 36.4; O2SAT 94; BMI 35.7
--- NOTE | 2023-05-24 04:03 | PC.NURSE ---
NO ACUTE CHANGES THIS SHIFT. VSS. REMAINS ON ROOM AIR. NIH SCALE WAS A 0 THIS SHIFT. PT STATES THAT HE FEELS PRETTY GOOD . NO C/O PAIN, OR OF ANY STROKE SYMPTOMS.
[2023-05-24 05:42] LABS: POC Glucose,Bedside 149 (70-110)
[2023-05-24 07:05] LABS: Chloride 105 mmol/L (98-107); Sodium 138 mmol/L (136-145)
[2023-05-24 07:06] LABS: Blood Urea Nitrogen 28 mg/dl (9-20); Calcium 8.9 mg/dl (8.4-10.2); Carbon Dioxide 26 mmol/L (22.0-30.0); Creatinine Clearance Estimated 86 mL/min (50-200); Estimated Glomerular Filt Rate 59 ml/min (>60); GFR (African American) 71 ML/MIN (>60); Glucose 138 mg/dl (74-100)
[2023-05-24 07:24] LABS: Hemoglobin 13.1 g/dL (14.1-18.0); Mean Corpuscular HGB Conc 31.9 g/dL (31.8-35.4); Mean Corpuscular Hemoglobin 28.6 pg (27.0-31.2); Mean Corpuscular Volume 89.6 fl (80-94); Mean Platelet Volume 8.5 fl (7.4-10.4); Platelet Count 194 K/mm3 (142-424); Red Blood Count 4.57 M/mm3 (4.60-6.20); Red Cell Distribution Width 13.9 % (11.5-17.5)
[2023-05-24 07:25] VITALS: BP 162/72; PULSE 61; RESP 18; TEMP 36.7; O2SAT 97
[2023-05-24 07:25] LABS: Neutrophils % 77.2 % (37.0-80.0)
[2023-05-24 07:26] LABS: Basophils % 0.2 % (0.1-2.0); Eosinophils % 0.6 % (0.1-12.0); Lymphocytes # 1.6 K/mm3 (0.7-4.5); Lymphocytes % 14.5 % (10-50); Monocytes % 7.5 % (1.7-9.3); Neutrophils # 8.5 K/mm3 (1.8-7.8)
[2023-05-24 07:27] LABS: Eosinophils # 0.1 K/mm3 (0.0-0.4); Monocytes # 0.8 K/mm3 (0.1-1.0)
--- NOTE | 2023-05-24 08:13 | HMH.PHAINT1 ---
Pharmacy Intervention Comments: Patient's home medications reviewed and verified with patient and external pharmacy. -Eleazar Preston, Pharm Student
[2023-05-24 08:45] LABS: Hemoglobin A1C 7.4 % (4.0-6.0)
--- NOTE | 2023-05-24 09:25 | PC.NURSE ---
COURTESY TECH NOTE; ROUNDED ON PT 0810, PT DENIED NEED FOR DRINK, ASSISTANCE WITH RESTROOM, AND NEED TO REPOSITION IN BED. CALL LIGHT WITHIN REACH, NO FURTHER REQUESTS AT THIS TIME JEROME DEAN
--- NOTE | 2023-05-24 09:46 | HMH.OTEV ---
OT Inpatient Evaluation Rehab OT IP Evaluation Start: 05/23/23 18:08 Freq: ONCE Status: Active Protocol: Document 05/24/23 09:42 JEFF (Rec: 05/24/23 09:46 [id number] Rehab OT IP Assessment Subjective History Pt oriented x 4 on arrival. Pt agreeable to engage in therapy evaluation. Pt admitted on 05/23/23 for slurred speech and possible CVA. Prior to being in the hospital, pt lived at home with his . Pt is normally a very active person and independent with all ADLs and IADLs. Pt still drives, gardens, and fishes. Pt does not use any type of AE during daily activities. Pt has a past medical history of: hypertension, type 2 diabetes mellitus, hyperlipidemia, hypothyroidism, cva several years ago and carotid artery stenosis Subjective I feel better than I did. Objective Patient Orientation Person,Place,Birthday,Month Upper Extremity Gross ROM WFL Bed Mobility bed mobility-scooting,bed mobility - supine/sit Assist Level Independent Transfer Training Sit/Stand Transfer Assist Level Supervision/Stand by Chair Transfer Ability Supervision/Stand by Chair Transfer Technique Sit to/from Ambulatory Chair Transfer Assistive Devices None Lower Body Dressing Ability Independent Overall Commode/Toilet Transfer Ability Standby Assistance Rehab OT IP prob,goals,plan Problems Date of Evaluation: 05/24/23 Rehab Potential Rehab Potential Innapropriate for Skilled Therapy Discharge Plan OT Discharge Plan At this time, pt appears to be at his baseline with functional transfers, functional mobility tasks, and ADL independence. Pt can return home with once he is medically stable per physician. Eval Complexity Eval Charge Codes 57846 - Low Complexity G Codes G -code Required No
--- NOTE | 2023-05-24 09:57 | HMH.PTEV ---
Physical Therapy Evaluation Rehab PT IP Evaluation Start: 05/23/23 18:08 Freq: ONCE Status: Active Protocol: Document 05/24/23 09:54 LORELEI (Rec: 05/24/23 09:56 LORELEI [id number]) Subjective/History History History 77 yowm adm to [facility] with poss CVA, confirmed by MRI. He has hx of prior CVA x 2, DM, HTN, HLD. He reports he lives with spouse, 1 step to enter the home, and he is generally independent with all ADLs and ambulation without AD at baseline. Subjective Subjective Currently no c/o pain, numbness, dizziness, or weakness. Rehab PT IP Eval Objective Appearance Patient Behavior Appropriate Patient Orientation Person,Place,Time Difficulty following instructions none Speech Pattern Clear Ambulation Patient Able to Ambulate Yes Ambulation Observation IP General Gait Pattern Observation No Deviations/Normal Ambulation Distance (feet) 150 Ambulation Assistive Device None Ambulation Ability Independent Balance Ability to Arise Able, uses arms to help Sitting Balance Steady, safe Standing Balance Steady, wide stance Dynamic Sitting Balance Ability Good Dynamic Standing Balance Ability Good Transfers Bed Transfer Ability Independent Chair Transfer Ability Independent Sit to Stand Bed Transfer Ability Independent Sit to Stand Chair Transfer Ability Independent ROM All Extremities PT ROM Status WFL MMT All Extremities PT MMT WFL Rehab PT IP prob,goals,plan Problems Date of Evaluation: 05/24/23 Discharge Plan PT Discharge Plan Pt currently appears to be at baseline for all mobility, no appreciable weakness with B UE and LE MMT. He is appropriate to return home once medically stable for d/c. G -code Required No Eval Complexity Eval Charge Codes 90790 - High Complexity PHYSICIAN CERTIFICATION: I certify the specified therapy services for Khris Faithon Holli OLEARY are required, authorized, and reviewed every 30 days.
--- NOTE | 2023-05-24 10:03 | EXP.PN ---
Subjective *Date: 05/24/23 *Time: 10:07 Interval history: hgb a1c 7.4 Exam Data for Last 24 hours Vital signs and Labs for Last 24 Hours: Temp Pulse Resp BP Pulse Ox O2 Del Method 98.0 F 61 18 162/72 H 97 Room Air 05/24/23 07:25 05/24/23 07:25 05/24/23 07:25 05/24/23 07:25 05/24/23 07:25 05/24/23 07:25 Laboratory Results - last 24 hr 05/23/23 10:20: WBC 8.9, RBC 4.91, Hgb 14.2, Hct 43.9, MCV 89.5, MCH 29.0, MCHC 32.4, RDW 13.9, Plt Count 224, MPV 8.4, Neut % (Auto) 61.8, Lymph % (Auto) 26.1, Coal % (Auto) 6.8, Eos % (Auto) 4.6, Baso % (Auto) 0.7, Neut # (Auto) 5.5, Lymph # (Auto) 2.3, Coal # (Auto) 0.6, Eos # (Auto) 0.4, Baso # (Auto) 0.1, PT 10.3, INR 0.95, Sodium 140, Potassium 4.3, Chloride 102, Carbon Dioxide 31 H, Anion Gap 11.3, BUN 23 H, Creatinine 1.20, Estimated Creat Clear 84, Estimated GFR 59, Est GFR ( Amer) 71, Glucose 133 H, Calcium 9.5, Total Bilirubin 0.6, AST 51, ALT 68, Alkaline Phosphatase 67, Total Protein 7.5, Albumin 4.3, Globulin 3.2, Albumin/Globulin Ratio 1.3 05/23/23 13:54: SARS-CoV-2 (PCR) Not detected, Influenza A Untype (PCR) Not detected, Influenza Type B (PCR) Not detected 05/23/23 14:23: Urine Color Yellow, Urine Appearance Clear, Urine pH 5.5, Ur Specific [place] 1.025, Urine Protein Negative, Urine Glucose (UA) Negative, Urine Ketones Negative, Urine Blood Negative, Urine Nitrate Negative, Urine Bilirubin Negative, Urine Urobilinogen 0.2, Ur Leukocyte Esterase Negative, Urine RBC None, Urine WBC None, Ur Squamous Epith Cells None, Urine Bacteria None 05/23/23 16:26: POC Glucose 187 H 05/23/23 20:52: POC Glucose 243 H 05/24/23 05:35: WBC 11.0 H, RBC 4.57 L, Hgb 13.1 L, Hct 41.0 L, MCV 89.6, MCH 28.6, MCHC 31.9, RDW 13.9, Plt Count 194, MPV 8.5, Neut % (Auto) 77.2, Lymph % (Auto) 14.5, Coal % (Auto) 7.5, Eos % (Auto) 0.6, Baso % (Auto) 0.2, Neut # (Auto) 8.5 H, Lymph # (Auto) 1.6, Coal # (Auto) 0.8, Eos # (Auto) 0.1, Baso # (Auto) 0.0, Sodium 138, Potassium 4.0, Chloride 105, Carbon Dioxide 26, Anion Gap 11.0, BUN 28 H, Creatinine 1.20, Estimated Creat Clear 86, Estimated GFR 59, Est GFR ( Amer) 71, Glucose 138 H, POC Glucose 149 H, Hemoglobin A1c 7.4 H, Calcium 8.9, TSH 0.70 I & O for Last 24 hours: Intake & Output 05/21/23 05/22/23 05/23/23 05/24/23 23:59 23:59 23:59 23:59 Intake Total 480 / 480 300 / 300 Output Total 200 / 200 0 / 0 Balance 280 / 280 300 / 300 Weight 113.908 kg 115.779 kg Assessment and Plan *Assessment and plan (1) Acute CVA (cerebrovascular accident): Status: Acute Category: Medical Code(s): I63.9 - Cerebral infarction, unspecified (2) Hypertension: Status: Acute Category: Medical Code(s): I10 - Essential (primary) hypertension (3) Diabetes type 2, controlled: Status: Acute Category: Medical Code(s): E11.9 - Type 2 diabetes mellitus without complications (4) Hypothyroidism: Status: Acute Category: Medical Code(s): E03.9 - Hypothyroidism, unspecified Plan Will need risk factor management for secondary prevention. DAPT x 21 days followed by plavix? continue atorvastatin 80mg daily needs tight control of htn and dm f/u echo, st and pt recs acute right lacunar infarct -associated with mild dysarthria and dysphagia both of which seem to be resolving -pt/ot/st -the patient received aspirin 325mg in the ED. resume his plavix and Lipitor -monitor on telemetry and obtain echocardiogram Hypertension uncontrolled -most recent sbp was near 170. i will give him doses of lisinopril and hctz now. type 2 dm -start sliding scale insulin and resume home medication lantus -check a1c and lipid panel right sided carotid artery stenosis -will need f/u with vascular surgery in the outpatient setting hypothyroidism -check tsh dvt ppx: lovenox full code diabetic diet
[2023-05-24 10:39] LABS: Chol/HDL Ratio 4.4 (1-3.5); Cholesterol 133 mg/dl (140-200); HDL Cholesterol 30 mg/dl (40-60); Triglycerides 187 mg/dl (30-150); VLDL Cholesterol 37 mg/dL (0-40)
[2023-05-24 10:50] LABS: Direct LDL Cholesterol 71.17 mg/dL (100-129)
[2023-05-24 10:59] VITALS: BP 134/56; PULSE 51; RESP 16; TEMP 36.7; O2SAT 98
[2023-05-24 11:53] LABS: POC Glucose,Bedside 173 (70-110)
--- NOTE | 2023-05-24 13:38 | HMH.SLDYSPHA ---
Speech & Language Evaluation Speech/Language Dysphagia Evaluation Start: 05/24/23 13:25 Freq: ONCE Status: Active Protocol: Document 05/24/23 13:25 TERRI (Rec: 05/24/23 13:38 [email or web address] [id number]) Dysphagia Assess/Goals/Plan Assessment Date of Evaluation: 05/24/23 Evaluation Type Initial Certification Assessment/Problems Dysphagia per MD order. Does Patient Qualify for Service No Qualify/Failure Comment Based on the results of the CSE, further skilled ST services are not warranted at this time. Recommendations PHYSICIAN CERTIFICATION: The specified therapy services are required, authorized, and reviewed every 30 days. Diet Recommendations Normal Liquid Type Recommendations Normal/Thin SL Swallow Guidelines Standard Aspiration Prec. Dysphagia Swallow Precautions/Strategies Sitting Upright (90 deg),Small Bites and Sips,Alternate Liquids/Solids Place Food on Either side of Mouth Plan Pt/Guardian verbally ack understanding Yes of dx/prognosis/goals Pt/Guardian verbally ack understanding Yes of/consent to tx prog G -code Required No Education Instructions provided Results of the CSE were discussed with pt, nursing, and care management who all expressed understanding. Pt/Caregiver able to recall information Able to recall/restate Reinforcement needed No Speech & Language HPI History Present Illness Description of Patient Problem Mr. De La Garza is a 77 y.o. male admitted to [facility] due to stroke . Medical hx includes hypetension, type 2 diabetes, hyperlipidemia, hypothyroidism , CVA, and carotid artery stenosis. Pt's MRI showed an acute right lacunar infarct. Pt's chest x-ray appeared to be within normal limits. Pt is on a diabetic diet currently and was on room air. Pt/Caregiver Concerns weakenss, slurred speech, difficulty swallowing Symptom Onset Date 05/23/23 Rehab Services Assessed Speech therapy Language Primary Language F[place]ian [place] Lang/Spoken in Home Fijian Accent Affect Communication? No General Information General Current Food Consistancy Regular,Thin Liquids Dentition Good Dentition Oxygen Status Room A
--- NOTE | 2023-05-24 14:41 | HMH.PHAINT1 ---
Pharmacy Intervention Comments: No new medications or stoppages for patient. Went in to talk but he had no questions. -Eleazar Preston, Pharm Student
--- NOTE | 2023-05-24 14:51 | EXP.DC.SUM ---
General Admission date:: 05/23/23 Discharge date: 05/24/23 HPI HPI HPI: Mr. De La Garza is a 77 year old male with a past medical history of hypertension, type 2 diabetes mellitus, hyperlipidemia, hypothyroidism, cva several years ago and carotid artery stenosis (per patient he had a surgical intervention on it approximately 2 years ago.) He states that he was mowing the yard yesterday afternoon when he felt weak all over and had slurring of speech and difficulty with swallowing. Symptoms have been resolving and currently he is able to eat without issue. He denies unilateral weakness, numbness/tingling, or change in vision. Brain MRI reveals an acute right lacunar infarct and CTA neck reveals 60% stenosis of the right internal carotid artery. Initial vitals: BP 195/90 P 80 RR 16 T 98.1 F SpO2 98% RA Initial workup: EKG: NSR HR 76, LAFB, no acute ischemic changes CXR no active cardiopulmonary disease CT Head: no acute intracranial abnormality CTA Head/neck: heavily calcified plaque in the proximal internal carotid artery on the right side, producing approximately 60% luminal diameter stenosis. Brain MRI wo - Acute right lacunar infarct. Chronic changes. Hospital Course Hospital Course Hospital Course: The patient presented nearly a day after onset of symptoms. The patient's symptoms of mild dysarthria and mild dysphagia decreased throughout the hospital course. His home medications of aspirin, plavix and high dose statin were continued. PT/OT/ST evaluated the patient and did not identify a need for outpatient therapy. No changes were made to his medications. He will need to follow up with his PCP and [facility]. He will need follow up with [facility] to address his carotid artery stenosis. Exam Data for Last 24 hours Vital signs and Labs for Last 24 Hours: Temp Pulse Resp BP Pulse Ox O2 Del Method 98.1 F 51 L 16 134/56 L 98 Room Air 05/24/23 10:59 05/24/23 10:59 05/24/23 10:59 05/24/23 10:59 05/24/23 10:59 05/24/23 13:25 Laboratory Results - last 24 hr 05/23/23 14:23: Urine Color Yellow, Urine Appearance Clear, Urine pH 5.5, Ur Specific [place] 1.025, Urine Protein Negative, Urine Glucose (UA) Negative, Urine Ketones Negative, Urine Blood Negative, Urine Nitrate Negative, Urine Bilirubin Negative, Urine Urobilinogen 0.2, Ur Leukocyte Esterase Negative, Urine RBC None, Urine WBC None, Ur Squamous Epith Cells None, Urine Bacteria None 05/23/23 16:26: POC Glucose 187 H 05/23/23 20:52: POC Glucose 243 H 05/24/23 05:35: WBC 11.0 H, RBC 4.57 L, Hgb 13.1 L, Hct 41.0 L, MCV 89.6, MCH 28.6, MCHC 31.9, RDW 13.9, Plt Count 194, MPV 8.5, Neut % (Auto) 77.2, Lymph % (Auto) 14.5, [place] % (Auto) 7.5, Eos % (Auto) 0.6, Baso % (Auto) 0.2, Neut # (Auto) 8.5 H, Lymph # (Auto) 1.6, [place] # (Auto) 0.8, Eos # (Auto) 0.1, Baso # (Auto) 0.0, Sodium 138, Potassium 4.0, Chloride 105, Carbon Dioxide 26, Anion Gap 11.0, BUN 28 H, Creatinine 1.20, Estimated Creat Clear 86, Estimated GFR 59, Est GFR ( Amer) 71, Glucose 138 H, POC Glucose 149 H, Hemoglobin A1c 7.4 H, Calcium 8.9, Triglycerides 187 H, Cholesterol 133 L, LDL Cholesterol Direct 71.17 L, VLDL Cholesterol 37, HDL Cholesterol 30 L, Cholesterol/HDL Ratio 4.4 H, TSH 0.70 05/24/23 11:35: POC Glucose 173 H I & O for Last 24 hours: Intake & Output 05/21/23 05/22/23 05/23/23 05/24/23 23:59 23:59 23:59 23:59 Intake Total 480 / 480 600 / 600 Output Total 200 / 200 0 / 0 Balance 280 / 280 600 / 600 Weight 113.908 kg 115.779 kg Constitutional Constitutional: no acute distress *Routine HEENT Exam Head: Present normocephalic Eye: Present EOMI and PERRL ENT: Present mucous membranes moist *Routine Neck Exam Neck: Present supple; Absent lymphadenopathy *Routine Respiratory Exam Respiratory: Present CTA bilaterally *Routine Cardiovascular Exam Cardiovascular: Present RRR *Routine Abdominal Exam Abdominal: Present soft and normoactive bowel sounds
--- NOTE | 2023-05-24 14:58 | EXP.DC.SUM ---
General Admission date:: 05/23/23 HPI HPI HPI: Mr. De La Garza is a 77 year old male with a past medical history of hypertension, type 2 diabetes mellitus, hyperlipidemia, hypothyroidism, cva several years ago and carotid artery stenosis (per patient he had a surgical intervention on it approximately 2 years ago.) He states that he was mowing the yard yesterday afternoon when he felt weak all over and had slurring of speech and difficulty with swallowing. Symptoms have been resolving and currently he is able to eat without issue. He denies unilateral weakness, numbness/tingling, or change in vision. Brain MRI reveals an acute right lacunar infarct and CTA neck reveals 60% stenosis of the right internal carotid artery. Initial vitals: BP 195/90 P 80 RR 16 T 98.1 F SpO2 98% RA Initial workup: EKG: NSR HR 76, LAFB, no acute ischemic changes CXR no active cardiopulmonary disease CT Head: no acute intracranial abnormality CTA Head/neck: heavily calcified plaque in the proximal internal carotid artery on the right side, producing approximately 60% luminal diameter stenosis. Brain MRI wo - Acute right lacunar infarct. Chronic changes. Exam Data for Last 24 hours Vital signs and Labs for Last 24 Hours: Temp Pulse Resp BP Pulse Ox O2 Del Method 98.1 F 51 L 16 134/56 L 98 Room Air 05/24/23 10:59 05/24/23 10:59 05/24/23 10:59 05/24/23 10:59 05/24/23 10:59 05/24/23 13:25 Laboratory Results - last 24 hr 05/23/23 14:23: Urine RBC None, Urine WBC None, Ur Squamous Epith Cells None, Urine Bacteria None 05/23/23 16:26: POC Glucose 187 H 05/23/23 20:52: POC Glucose 243 H 05/24/23 05:35: WBC 11.0 H, RBC 4.57 L, Hgb 13.1 L, Hct 41.0 L, MCV 89.6, MCH 28.6, MCHC 31.9, RDW 13.9, Plt Count 194, MPV 8.5, Neut % (Auto) 77.2, Lymph % (Auto) 14.5, [place] % (Auto) 7.5, Eos % (Auto) 0.6, Baso % (Auto) 0.2, Neut # (Auto) 8.5 H, Lymph # (Auto) 1.6, [place] # (Auto) 0.8, Eos # (Auto) 0.1, Baso # (Auto) 0.0, Sodium 138, Potassium 4.0, Chloride 105, Carbon Dioxide 26, Anion Gap 11.0, BUN 28 H, Creatinine 1.20, Estimated Creat Clear 86, Estimated GFR 59, Est GFR ( Amer) 71, Glucose 138 H, POC Glucose 149 H, Hemoglobin A1c 7.4 H, Calcium 8.9, Triglycerides 187 H, Cholesterol 133 L, LDL Cholesterol Direct 71.17 L, VLDL Cholesterol 37, HDL Cholesterol 30 L, Cholesterol/HDL Ratio 4.4 H, TSH 0.70 05/24/23 11:35: POC Glucose 173 H I & O for Last 24 hours: Intake & Output 05/21/23 05/22/23 05/23/23 05/24/23 23:59 23:59 23:59 23:59 Intake Total 480 / 480 600 / 600 Output Total 200 / 200 0 / 0 Balance 280 / 280 600 / 600 Weight 113.908 kg 115.779 kg Results Data Completed and Pending Labs on day of discharge: Labs from last 24 hours 05/24/23 05/24/23 05/23/23 11:35 05:35 20:52 WBC 11.0 H RBC 4.57 L Hgb 13.1 L Hct 41.0 L MCV 89.6 MCH 28.6 MCHC 31.9 RDW 13.9 Plt Count 194 MPV 8.5 Neut % (Auto) 77.2 Lymph % (Auto) 14.5 [place] % (Auto) 7.5 Eos % (Auto) 0.6 Baso % (Auto) 0.2 Neut # (Auto) 8.5 H Lymph # (Auto) 1.6 [place] # (Auto) 0.8 Eos # (Auto) 0.1 Baso # (Auto) 0.0 Sodium 138 Potassium 4.0 Chloride 105 Carbon Dioxide 26 Anion Gap 11.0 BUN 28 H Creatinine 1.20 Estimated Creat Clear 86 Estimated GFR 59 Est GFR ( Amer) 71 Glucose 138 H POC Glucose 173 H 149 H 243 H Hemoglobin A1c 7.4 H Calcium 8.9 Triglycerides 187 H Cholesterol 133 L LDL Cholesterol Direct 71.17 L VLDL Cholesterol 37 HDL Cholesterol 30 L Cholesterol/HDL Ratio 4.4 H TSH 0.70 Urine RBC Urine WBC Ur Squamous Epith Cells Urine Bacteria 05/23/23 05/23/23 16:26 14:23 WBC RBC Hgb Hct MCV MCH MCHC RDW Plt Count MPV Neut % (Auto) Lymph % (Auto) [place] % (Auto) Eos % (Auto) Baso % (Auto) Neut # (Auto) Lymph # (Auto) [place] # (Auto) Eos # (Auto) Baso # (Auto)
--- NOTE | 2023-05-28 14:40 | CARE MANAGER ---
Spoke with patient related to hospital discharge. He states he is doing well. [facility]. He denies any questions or concerns. SHERMAN Guadalupe
== END 2023-05-24 15:05 | disposition home or self-care (01) | DRG 66 ==
LOC: ER 13:47 → 2ND 14:14
PROVIDERS: Admitting Provider Internal Medicine; Emergency Provider Family Medicine; Visit Provider Internal Medicine
DX: I63.231 Cerebral infarction due to unspecified occlusion or stenosis of right carotid arteries (principal); I10 Essential (primary) hypertension; E11.9 Type 2 diabetes mellitus without complications; E03.9 Hypothyroidism, unspecified; R29.700 NIHSS score 0; Z86.73 Personal history of transient ischemic attack (TIA), and cerebral infarction without residual deficits; Z79.4 Long term (current) use of insulin; E78.5 Hyperlipidemia, unspecified; R47.1 Dysarthria and anarthria; R13.10 Dysphagia, unspecified
CPT/HCPCS: 70450; 70496; 70498; 70551; 71045; 80048; 80053; 80061; 81001; 82962; 83036; 84443; 85025; 85610; 87636; 92610; 93005; 93306; 97163; 97165; 99291; Q9967

== ENCOUNTER 2024-04-18 11:55 | Outpatient (CLI) | payer OTHER, MEDICARE, SELFPAY ==
--- NOTE | 2024-04-18 11:59 | XR_ITS ---
FINAL REPORT CLINICAL HISTORY: right hip pain post injury FINDINGS: Right hip Three views were obtained. There is no acute fracture or dislocation. There are mild degenerative changes. No soft tissue abnormality is identified. IMPRESSION: No acute process. Reviewed, Interpreted and Dictated by Danilo Velasquez III, MD Transcribed by Oumou Garcia Authenticated and [facility]
== END 2024-04-18 23:59 | disposition home or self-care (01) ==
LOC: RAD 11:56
PROVIDERS: PCP Nurse Practitioner Family; Visit Provider Nurse Practitioner Family
DX: M25.551 Pain in right hip (principal)
CPT/HCPCS: 73502

== ENCOUNTER 2024-05-10 21:58 | Observation (INO) | payer OTHER, MEDICARE, SELFPAY ==
[2024-05-10 21:58] VITALS: BP 109/47; PULSE 70; RESP 20; TEMP 36.7; O2SAT 94; BMI 32.8
--- NOTE | 2024-05-10 22:01 | ECG_ITS ---
APPROVED REPORT Exam: Resting ECG HR:69 bpm ECG Measurements Heart Rate 69 AXES NC 192 P 53 QRSd 137 QRS -58 QT 426 T 73 QTc 446 Conclusion SINUS RHYTHM INTRAVENTRICULAR CONDUCTION DELAY [130+ ms QRS DURATION] Electronically signed by : GAEL SEGURA, 05/12/2024 15:02:01
--- NOTE | 2024-05-10 22:12 | XR_ITS ---
PROCEDURE INFORMATION: Exam: XR Chest Exam date and time: 05/10/2024 10:29 PM Age: 78 years old Clinical indication: Other: Syncope TECHNIQUE: Imaging protocol: Radiologic exam of the chest. Views: 2 views. COMPARISON: CR XR CHEST PORTABLE 05/23/2023 10:50 AM FINDINGS: Lungs: No evidence of acute pulmonary disease or infiltrates Pleural spaces: No large effusion or pneumothorax. Heart/Mediastinum: No evidence of mediastinal widening or cardiac silhouette enlargement; the mediastinum and heart appear within normal limits for contour and size. Bones/joints: No evidence of acute osseous abnormalities within the visualized portions of the thoracic spine and ribs. Osseous structures appear appropriate for patient age. IMPRESSION: No dense parenchymal consolidation, pleural effusion, or pneumothorax.
[2024-05-10 22:18] LABS: Basophils # 0.1 K/mm3 (0-0.2); Basophils % 1.1 % (0.1-2.0); Eosinophils # 0.3 K/mm3 (0.0-0.4); Eosinophils % 2.4 % (0.1-12.0); Hematocrit 43.1 % (42.0-52.0); Hemoglobin 13.5 g/dL (14.1-18.0); Lymphocytes # 3.6 K/mm3 (0.7-4.5); Lymphocytes % 29.4 % (10-50); Mean Corpuscular HGB Conc 31.4 g/dL (31.8-35.4); Mean Corpuscular Hemoglobin 28.8 pg (27.0-31.2); Mean Corpuscular Volume 91.5 fl (80-94); Mean Platelet Volume 8.7 fl (7.4-10.4); Monocytes # 0.9 K/mm3 (0.1-1.0); Monocytes % 7.5 % (1.7-9.3); Neutrophils # 7.2 K/mm3 (1.8-7.8); Neutrophils % 59.7 % (37.0-80.0); Platelet Count 257 K/mm3 (142-424); Red Blood Count 4.71 M/mm3 (4.60-6.20); Red Cell Distribution Width 14.3 % (11.5-17.5); White Blood Count 12.1 K/mm3 (4.8-10.8)
[2024-05-10 22:22] LABS: Chloride 102 mmol/L (98-107)
[2024-05-10 22:23] LABS: Potassium 4.5 mmoL/L (3.5-5.1); Sodium 139 mmol/L (136-145)
[2024-05-10 22:25] LABS: Alanine Aminotransferase 55 U/L (12-78); Alkaline Phosphatase 71 U/L (38-126); Anion Gap 22.5 mEq/L (5-15); Aspartate Amino Transferase 42 U/L (17-59); Bilirubin,Total 0.5 mg/dl (0.2-1.3); Blood Urea Nitrogen 44 mg/dl (9-20); Carbon Dioxide 19 mmol/L (22.0-30.0); Creatinine Clearance Estimated 32 mL/min (50-200); Estimated Glomerular Filt Rate 21 ml/min (>60); GFR (African American) 26 ML/MIN (>60); Lipase 418 U/L (23-300)
[2024-05-10 22:26] LABS: Albumin Level 4.5 g/dl (3.5-5.0); Albumin/Globulin Ratio 1.7 (1.1-1.8); Calcium 9.5 mg/dl (8.4-10.2); Globulin 2.7 g/dL (1.3-3.2); Glucose 160 mg/dl (74-100); Total Protein,Serum 7.2 g/dl (6.3-8.2)
--- NOTE | 2024-05-10 22:38 | HMH.EDGENADL ---
Discharge Plan Disposition Patient Disposition: Admitted Chief Complaint: Syncope Prescriptions Prescriptions: No Action lisinopril 40 mg tablet 10 mg PO DAILY hydrochlorothiazide 25 mg tablet 25 mg PO DAILY levothyroxine [Synthroid] 75 mcg tablet 75 mcg PO DAILY atenolol 25 mg tablet 25 mg PO DAILY atorvastatin 80 mg tablet 80 mg PO DAILY metformin 1,000 mg tablet 1,000 mg PO BID clopidogrel [Plavix] 75 mg tablet 75 mg PO DAILY insulin glargine [Lantus U-100 Insulin] 100 unit/mL solution 25 unit SUB-Q QHS tadalafil [Cialis] 10 mg tablet 10 mg PO DAILY PRN (Reason: sexual activity) Qty: 10 0RF Rx Instructions: administer approximately 30min before sexual activity; do not use more than 1 dose per 24hrs glimepiride 2 mg Tablet 2 mg PO DAILY famotidine 20 mg Tablet 20 mg PO BID aspirin 81 mg Tablet,Chewable 81 mg PO DAILY Clinical Impressions Clinical Impression: Syncope, MACKENZIE (acute kidney injury) Discharge ED Provider: Segun Mahoney General Adult HPI General Chief complaint: Syncope Stated complaint: syncope Time Seen by Provider: 05/10/24 22:17 Mode of Arrival: Ambulatory Source of Information: Patient Limitations: No Limitations Description of Symptoms (Recalled from ER Triage Doc. by RN): pt got overheated and nasueated and had ansyncopal episode. pt fbs was 149 upon triage and is alox4 with vitals WNL. pt states he feels much better after the fluids ems gave History of Present Illness HPI narrative: Please note that above description of symptoms, in this electronic medical record under categorization of recalled from ER triage doctor by RN are reflective of an initial nursing assessment, however, is not reflective of my full history and physical exam that was personally taken and clarified. Consequentially, this preceding description of symptoms, which may include the patient's categorized chief complaint in the EMR, do not reflect my personal clinical impression, and the ultimate description of history of present illness and patient stated complaints should be deferred to this section of the note. Unless stated otherwise or congruent with this section of the note, additional signs, symptoms, or incongruence should be interpreted as inaccurate with my clinical impression. Related Data Home Medications Medication Instructions Recorded Confirmed atenolol 25 mg tablet 25 mg PO DAILY Blood Pressure 05/27/18 04/28/24 atorvastatin 80 mg tablet 80 mg PO DAILY Cholesterol 05/27/18 04/28/24 clopidogrel 75 mg tablet (Plavix) 75 mg PO DAILY Anti 05/27/18 04/28/24 Platelet/Arteriosclerotic Vascular Disease hydrochlorothiazide 25 mg tablet 25 mg PO DAILY Blood Pressure 05/27/18 04/28/24 levothyroxine 75 mcg tablet 75 mcg PO DAILY thyroid 05/27/18 04/28/24 (Synthroid) lisinopril 40 mg tablet 10 mg PO DAILY Blood Pressure 05/27/18 04/28/24 metformin 1,000 mg tablet 1,000 mg PO BID Diabetes 05/27/18 04/28/24 aspirin 81 mg chewable tablet 81 mg PO DAILY Heart Health 05/24/23 04/28/24 famotidine 20 mg tablet 20 mg PO BID Acid Reflux 05/24/23 04/28/24 glimepiride 2 mg tablet 2 mg PO DAILY Diabetes 05/24/23 04/28/24 insulin glargine 100 unit/mL 25 unit SQ QHS Diabetes 04/18/24 04/28/24 subcutaneous solution (Lantus U-100 Insulin) Previous Rx's Medication Instructions Recorded tadalafil 10 mg tablet (Cialis) 10 mg PO DAILY PRN sexual activity 04/28/24 #10 tabs Allergies Allergy/AdvReac Type Severity Reaction Status Date / Time No Known Allergies Allergy Verified 04/28/24 10:53 [facility] Disclaimer: The information contained in this section may have been updated after the patient was seen, as this information can be updated by other users. Social History Smoking Status: Never smoker alcohol intake: never substance use type: denies use current occupational status: other Travel in the last 8 weeks: None housing: other ROS Obtained: Yes All systems reviewed & no additional complaints except as documented Physical Exam General General appearance: alert and in no apparent distress Head Head exam: atraumatic and normocephalic Eye Eye exam: Present normal appearance, PERRL and EOMI ENT ENT exam: Present mucous membranes moist Neck Neck exam: Present normal inspection, full ROM and trachea midline Respiratory Respiratory exam: Absent respiratory distress, wheezes, stridor, accessory muscle use or prolonged expiratory phase Cardiovascular Cardiovascular exam: Present normal rhythm Abdominal Exam Abdominal exam: Present soft; Absent distention, tenderness, guarding, rebound or rigidity Extremities Exam Extremities exam: Absent edema Neurological Exam Neurological exam: Present alert, oriented X3, CN II-XII intact and normal gait; Absent motor sensory deficit Skin Skin exam: Present warm and dry; Absent diaphoresis or erythema Medical Decision Making Medical Records Medical records reviewed: Yes I reviewed the patient's medical records. Mannie Inquiry Pt receiving controlled substance: No Mannie was queried for this patient: No Vital Signs: 05/10/24 21:58 Temperature 98.0 F Temperature Source Oral Pulse Rate [Right Radial] 70 Respiratory Rate 20 Blood Pressure [Right Arm] 109/47 L Blood Pressure Mean [Right Arm] 67 02 Sat by Pulse Oximetry 94 L Oxygen Delivery Method Room Air Lab Data Lab Results 05/10/24 21:48: WBC 12.1 H, RBC 4.71, Hgb 13.5 L, Hct 43.1, MCV 91.5, MCH 28.8, MCHC 31.4 L, RDW 14.3, Plt Count 257, MPV 8.7, Neut % (Auto) 59.7, Lymph % (Auto) 29.4, [place] % (Auto) 7.5, Eos % (Auto) 2.4, Baso % (Auto) 1.1, Neut # (Auto) 7.2, Lymph # (Auto) 3.6, [place] # (Auto) 0.9, Eos # (Auto) 0.3, Baso # (Auto) 0.1, Sodium 139, Potassium 4.5, Chloride 102, Carbon Dioxide 19 L, Anion Gap 22.5 H, BUN 44 H, Creatinine 2.90 H, Estimated Creat Clear 32, Estimated GFR 21 L, Est GFR ( Amer) 26 L, Glucose 160 H, Calcium 9.5, Total Bilirubin 0.5, AST 42, ALT 55, Alkaline Phosphatase 71, Troponin I < 0.01, NT-Pro-B Natriuret Pep 208, Total Protein 7.2, Albumin 4.5, Globulin 2.7, Albumin/Globulin Ratio 1.7, Lipase 418 H 05/10/24 22:39: VBG pH 7.27 L, VBG pCO2 42.4, VBG pO2 41.6 H, VBG HCO3 19.1 L, VBG Total CO2 20.4 L, VBG O2 Saturation 69.0, VBG Base Excess -7.8 L, VBG Lactic Acid 3.6 H 05/10/24 21:48 05/10/24 21:48 Orders (Tests/Meds): ED MEDICATIONS Generic Name Dose Route Start Last Admin Trade Name Freq PRN Reason Stop Dose Admin Lactated Ringer's 1,000 mls @ 999 mls/hr 05/10/24 22:39 05/10/24 22:50 Lactated Ringer's 1000 Ml Bag IV 05/10/24 23:39 999 mls/hr .Q1H1M ONE Administration Discontinued Medications Generic Name Dose Route Start Last Admin Trade Name Freq PRN Reason Stop Dose Admin Aspirin 324 mg 05/10/24 22:39 05/10/24 22:50 Aspirin 81mg Chewable Tablet PO 05/10/24 22:40 324 mg ONCE ONE Administration ORDERS Category Date Time Status XR chest 2V Stat Exams 05/10/24 22:12 Taken Complete Blood Count Auto Diff Stat Lab 05/10/24 21:48 Completed Comprehensive Metabolic Panel Stat Lab 05/10/24 21:48 Completed Lipase Stat Lab 05/10/24 21:48 Completed NT Pro Brain Natriuretic Pep. Stat Lab 05/10/24 21:48 Completed Troponin I Q3H Lab 05/11/24 01:15 Ordered Troponin I Q3H Lab 05/11/24 04:15 Ordered Troponin I Stat Lab 05/10/24 21:48 Completed VBG [Venous Blood Gas] Stat RT 05/10/24 22:39 Completed Medical Decision Narrative: 78-year-old male history of CVA, hypertension, hyperlipidemia, diabetes presenting with vomiting followed by syncopal episode. Patient states that he was out all day smoking a hog for a festival today. Heat index was 105 ?F this time. States he was in the sun all day, not in the shade. Drink 1 bottle of water throughout the day as well as 1 beer. Try to take breaks throughout the day inside an air conditioned car or take cold shower, but went to [facility] shortly prior to this visit. States at the [facility], he was eating multiple manage based side dishes with the patient he ate cooked and started feeling ill about an hour to an hour and a half afterward. [place] unwell, passed out, was lowered to the ground by family. Woke up less than a minute later, vomited a couple times and syncopized again. When patient woke up after a few seconds, family states that there was no postictal state or confusion. Patient states that he was actually feeling much better after passing out second time and vomiting. No blood in his vomit. No fevers or chills, chest pain, shortness of breath, neurologic deficits, headache, or any other concerns. History was obtained via conversation with patient and family. On arrival, patient hemodynamically stable, alert, oriented x4, appropriate, GCS 15, moving all extremities spontaneously, pupils equal and reactive to light. Full physical exam performed and significant for very well-appearing male no acute distress. Cardiac exam within normal limits, no murmurs or gallops or rubs. No lower extremity edema. Pulses are equal and symmetric in upper and lower extremities.Patient states that he feels great and finer than a frog hair. Differential includes orthostatic versus vasovagal syncope, heat exhaustion, ACS, DC, malignant arrhythmia, CHF exacerbation, diabetic emergency, among others. Sinus rhythm 69 beats a minute without ST or T wave changes concerning for acute ischemia. [place] 192, QRS 137, QTc 446 with leftward axis. Patient was given 324 mg aspirin, fluid bolus for symptomatic management and correction of underlying abnormalities. Workup independently interpreted and significant for leukocytosis 12.1. Chemistry with MACKENZIE creatinine 2.9, BUN 44, anion gap elevated 22.5. Glucose 160. LFTs normal. Chest x-ray with large gastric bubble, but no other acute findings. No intrathoracic findings. BNP negative. Anion gap elevated at greater than 20, VBG with metabolic acidosis and lactate 3.6. Because patient has MACKENZIE with creatinine 2.9 up from normal baseline, another liter of fluids was hung. Hospitalist contacted and case was discussed at length, patient to be admitted for MACKENZIE, dehydration, monitoring. Because patient high risk for clinical decompensation, deemed appropriate for inpatient admission. Results were relayed to patient who voiced understanding and patient was agreeable to inpatient admission and management. Patient was admitted to the hospital for further definitive management. Supervisor [employer] disclaimer Much of this encounter note is an electronic store facility technician spoken language to printed text. Electronic store facility technician of the spoken language may permit errors. Although I have reviewed the note, some errors may still exist. Critical Care Critical Care Time Critical Care Time: No
[2024-05-10] MEDS: LACTATED RINGERS 1000ML 1,000 ML 999 ML IV (22:50)
[2024-05-10] MEDS: ASPIRIN 81MG CHEWABLE TABLET 324 MG PO (22:50)
--- NOTE | 2024-05-10 22:59 | PC.NURSE ---
RT notified of blood work in ED for them
[2024-05-10 23:07] LABS: NT Pro Brain Natriuretic Pep. 208 pg/mL (0-450)
[2024-05-10 23:11] LABS: VBG Base Excess -7.8 mmol/L (-2.4-2.3); VBG HCO3 19.1 mmol/L (23-30); VBG PCO2 42.4 mmol/L (35-51); VBG PH 7.27 mmol/L (7.31-7.41); VBG PO2 41.6 mmol/L (28-40); VBG Total CO2 20.4 mmol/L (23-27)
[2024-05-10 23:13] LABS: Lactate Venous 3.6 mmol/L (0.4-2.0)
--- NOTE | 2024-05-10 23:13 | PC.NURSE ---
called [facility] for bed assignment; admit to hospitalist, dx: MACKENZIE, syncope, dehydration
[2024-05-10 23:14] LABS: Troponin I < 0.01 ng/ml (0.00-0.034)
--- NOTE | 2024-05-10 23:16 | P.HP_ITS ---
History of Present Illness *Admission Date: 05/10/24 *Reason for visit:: MACKENZIE syncope *History of present illness: This is a 78-year-old male history of CVA, hypertension, hyperlipidemia, NIDDM presented with vomiting followed by syncopal episode. Patient states that he was out all day in the sun. Only had 1 bottle of water throughout the day as well as 1 beer. Try to take breaks throughout the day inside an air conditioned car or take cold shower, but went to [facility] shortly prior to this visit. States at the [facility], he was eating multiple manage based side dishes with the patient he ate cooked and started feeling ill about an hour to an hour and a half afterward. [place] unwell, passed out, was lowered to the ground by family. Woke up less than a minute later, vomited a couple times and syncopized again. When patient woke up after a few seconds, family states that there was no postictal state or confusion. Patient states that he was actually feeling much better after passing out second time and vomiting. No blood in his vomit. No fevers or chills, chest pain, shortness of breath, neurologic deficits, headache, or any other concerns. Admitted for further monitoring and management. [facility] Disclaimer: The information contained in this section may have been updated after the patient was seen, as this information can be updated by other users. Family History (Updated 05/11/24 @ 00:27 by Belinda Dunlap RN) Other Family history of brain tumor Family history of diabetes mellitus Family history of stroke Social History (Updated 05/11/24 @ 00:27 by Belinda Dunlap RN) Smoking Status: Never smoker alcohol intake: never substance use type: denies use current occupational status: other Travel in the last 8 weeks: None housing: other Review of Systems Review of Systems Review of systems:: pertinent systems reviewed and negative unless documented below Meds Home Medications and Allergies Home Medications Medication Instructions Recorded Confirmed Type atenolol 25 mg tablet 25 mg PO DAILY Blood Pressure 05/27/18 05/11/24 History atorvastatin 80 mg tablet 80 mg PO DAILY Cholesterol 05/27/18 05/11/24 History clopidogrel 75 mg tablet (Plavix) 75 mg PO DAILY Anti 05/27/18 05/11/24 History Platelet/Arteriosclerotic Vascular Disease hydrochlorothiazide 25 mg tablet 25 mg PO DAILY Blood Pressure 05/27/18 05/11/24 History levothyroxine 75 mcg tablet 75 mcg PO DAILY thyroid 05/27/18 05/11/24 History (Synthroid) lisinopril 40 mg tablet 10 mg PO DAILY Blood Pressure 05/27/18 04/28/24 History metformin 1,000 mg tablet 1,000 mg PO BID Diabetes 05/27/18 05/11/24 History aspirin 81 mg chewable tablet 81 mg PO DAILY Heart Health 05/24/23 05/11/24 History famotidine 20 mg tablet 20 mg PO BID Acid Reflux 05/24/23 05/11/24 History glimepiride 2 mg tablet 2 mg PO DAILY Diabetes 05/24/23 05/11/24 History insulin glargine 100 unit/mL 25 unit SQ QHS Diabetes 04/18/24 05/11/24 History subcutaneous solution (Lantus U-100 Insulin) tadalafil 10 mg tablet (Cialis) 10 mg PO DAILY PRN sexual activity 04/28/24 05/11/24 Rx #10 tabs New Prescriptions to Start Prescriptions: Allergies Allergy/AdvReac Type Severity Reaction Status Date / Time No Known Allergies Allergy Verified 04/28/24 10:53 Exam Data for Last 24 hours Vital signs and Labs for Last 24 Hours: Temp Pulse Resp BP Pulse Ox O2 Del Method 98.0 F 70 20 109/47 L 94 L Room Air 05/10/24 21:58 05/10/24 21:58 05/10/24 21:58 05/10/24 21:58 05/10/24 21:58 05/10/24 21:58 Laboratory Results - last 24 hr 05/10/24 21:48: WBC 12.1 H, RBC 4.71, Hgb 13.5 L, Hct 43.1, MCV 91.5, MCH 28.8, MCHC 31.4 L, RDW 14.3, Plt Count 257, MPV 8.7, Neut % (Auto) 59.7, Lymph % (Auto) 29.4, [place] % (Auto) 7.5, Eos % (Auto) 2.4, Baso % (Auto) 1.1, Neut # (Auto) 7.2, Lymph # (Auto) 3.6, [place] # (Auto) 0.9, Eos # (Auto) 0.3, Baso # (Auto) 0.1, Sodium 139, Potassium 4.5, Chloride 102, Carbon Dioxide 19 L, Anion Gap 22.5 H, BUN 44 H, Creatinine 2.90 H, Estimated Creat Clear 32, Estimated GFR 21 L, Est GFR ( Amer) 26 L, Glucose 160 H, Calcium 9.5, Total Bilirubin 0.5, AST 42, ALT 55, Alkaline Phosphatase 71, Troponin I < 0.01, NT-Pro-B Natriuret Pep 208, Total Protein 7.2, Albumin 4.5, Globulin 2.7, Albumin/G lobulin Ratio 1.7, Lipase 418 H 05/10/24 22:39: VBG pH 7.27 L, VBG pCO2 42.4, VBG pO2 41.6 H, VBG HCO3 19.1 L, VBG Total CO2 20.4 L, VBG O2 Saturation 69.0, VBG Base Excess -7.8 L, VBG Lactic Acid 3.6 H Temp Pulse Resp BP Pulse Ox O2 Del Method 98.6 F 58 L 18 172/76 H 96 Room Air 05/23/23 15:07 05/23/23 15:07 05/23/23 15:07 05/23/23 15:07 05/23/23 15:07 05/23/23 15:07 Laboratory Results - last 24 hr 05/23/23 10:20: WBC 8.9, RBC 4.91, Hgb 14.2, Hct 43.9, MCV 89.5, MCH 29.0, MCHC 32.4, RDW 13.9, Plt Count 224, MPV 8.4, Neut % (Auto) 61.8, Lymph % (Auto) 26.1, [place] % (Auto) 6.8, Eos % (Auto) 4.6, Baso % (Auto) 0.7, Neut # (Auto) 5.5, Lymph # (Auto) 2.3, [place] # (Auto) 0.6, Eos # (Auto) 0.4, Baso # (Auto) 0.1, PT 10.3, INR 0.95, Sodium 140, Potassium 4.3, Chloride 102, Carbon Dioxide 31 H, Anion Gap 11.3, BUN 23 H, Creatinine 1.20, Estimated Creat Clear 84, Estimated GFR 59, Est GFR ( Amer) 71, Glucose 133 H, Calcium 9.5, Total Bilirubin 0.6, AST 51, ALT 68, Alkaline Phosphatase 67, Total Protein 7.5, Albumin 4.3, Globulin 3.2, Albumin/Globulin Ratio 1.3 05/23/23 13:54: SARS-CoV-2 (PCR) Not detected, Influenza A Untype (PCR) Not detected, Influenza Type B (PCR) Not detected 05/23/23 14:23: Urine Color Yellow, Urine Appearance Clear, Urine pH 5.5, Ur Specific [place] 1.025, Urine Protein Negative, Urine Glucose (UA) Negative, Urine Ketones Negative, Urine Blood Negative, Urine Nitrate Negative, Urine Bilirubin Negative, Urine Urobilinogen 0.2, Ur Leukocyte Esterase Negative, Urine RBC None, Urine WBC None, Ur Squamous Epith Cells None, Urine Bacteria None I & O for Last 24 hours: Intake & Output 05/07/24 05/08/24 05/09/24 05/10/24 23:59 23:59 23:59 23:59 Weight 106.594 kg Intake & Output 05/20/23 05/21/23 05/22/23 05/23/23 23:59 23:59 23:59 23:59 Weight 113.908 kg Constitutional Constitutional: no acute distress *Routine HEENT Exam Head: Present normocephalic Eye: Present EOMI and PERRL ENT: Present mucous membranes moist *Routine Neck Exam Neck: Present supple; Absent lymphadenopathy *Routine Respiratory Exam Respiratory: Present CTA bilaterally *Routine Cardiovascular Exam Cardiovascular: Present RRR *Routine Abdominal Exam Abdominal: Present soft and normoactive bowel sounds; Absent tenderness *Routine Rectal Exam Rectal:: deferred *Routine Genitalia Exam Genitalia:: deferred *Routine Extremities Exam Extremities: Absent cyanosis, clubbing or edema *Routine Skin Exam Skin: Present warm; Absent rash *Routine Neurological Exam Neurological: Present alert, oriented X3 and CN II-XII intact Comments: finger to nose exam was normal bilaterally. sensation to light touch is symmetric bilaterally. strength is 5/5 in all four extremities. Speech is slightly slurred. possible slight facial droop left sided H&P: Result Imaging and Cardiology EKG: Status: image reviewed by me, Preliminary report and final report Chest x-ray: Status: image reviewed by me, Preliminary report and final report Assessment and Plan *Assessment and plan (1) Syncope: Status: Acute Qualifiers: Encounter type: initial encounter Syncope type: heat syncope Qualified Code(s): T67.1XXA - Heat syncope, initial encounter Category: Medical Code(s): R55 - Syncope and collapse (2) MACKENZIE (acute kidney injury): Status: Acute Category: Medical Code(s): N17.9 - Acute kidney failure, unspecified (3) Diabetes type 2, controlled: Status: Acute Qualifiers: Diabetes mellitus complication status: with other specified complication Diabetes mellitus [facility] insulin use: without termite treater helper use Qualified Code(s): E11.69 - Type 2 diabetes mellitus with other specified complication Category: Medical Code(s): E11.9 - Type 2 diabetes mellitus without complications (4) Hypertension: Status: Acute Qualifiers: Hypertension type: unspecified Qualified Code(s): I10 - Essential (primary) hypertension Category: Medical Code(s): I10 - Essential (primary) hypertension (5) Arteriosclerotic vascular disease: Status: Acute Category: Medical Code(s): I70.90 - Unspecified atherosclerosis (6) History of CVA (cerebrovascular accident): Status: Acute Category: Medical Code(s): Z86.73 - Personal history of transient ischemic attack (TIA), and cerebral infarction without residual deficits Plan 78-year-old male history of CVA, hypertension, hyperlipidemia, IDDM presented with vomiting followed by syncopal episode. Patient states that he was out all day in the sun. on arrival patient hemodinamically stable, non on apparent distress, no neuro deficit. GCS 15. Workup independently interpreted and significant for leukocytosis 12.1. Chemistry with MACKENZIE creatinine 2.9, BUN 44, anion gap elevated 22.5. Glucose 160. LFTs normal. Chest x-ray with large gastric bubble, but no other acute findings. No intrathoracic findings. BNP negative. Anion gap elevated at greater than 20, VBG with metabolic acidosis and lactate 3.6. Because patient has MACKENZIE with creatinine 2.9 up from normal baseline, hydration bolus x2 was given. Ed requested admission for further inpatient management. Agreed for it. Plan as follow: - Syncope likely heat syncope: to rule out vasovagal. MACKENZIE, secondary to dehydration Admit patient for continuous monitoring. Dispo MedSurg Continue IV hydration, normal saline. radiation monitor Repeat CMP CBC in the morning. Assess for creatinine and EGFR function Avoid nephrotoxic medications Monitor in and out Encourage p.o. increase p.o. intake -History of diabetes: Fingersticks before meals On sliding scale Humalog Resume home Lantus Hold metformin and glimepiride in the setting of MACKENZIE Hypertension: Stable On lisinopril hydrochlorothiazide and atenolol History of atherosclerotic vascular disease with CVA: Resume Plavix and statin On Protonix for GERD and GI protection Full code
[2024-05-10 23:40] VITALS: BP 132/57; PULSE 70; RESP 22; TEMP 36.7; O2SAT 94
--- NOTE | 2024-05-10 23:40 | PC.NURSE ---
called report to martin ramirez on 2nd floor
--- NOTE | 2024-05-10 23:59 | PC.NURSE ---
pt arrived to floor at this time
[2024-05-11] VITALS (7 sets, daily range): BP systolic 128–149; BP diastolic 55–72; PULSE 50–72; RESP 16–22; TEMP 36.6–36.7; O2SAT 93–95; BMI 32.8
[2024-05-11] MEDS: 0.9 % SODIUM CHLORIDE 1000ML 1,000 ML 125 ML IV ×2 (00:14→09:49)
[2024-05-11 02:01] LABS: Troponin I < 0.01 ng/ml (0.00-0.034)
[2024-05-11 03:14] LABS: Reflex Lactic Add Lactic Reflex
[2024-05-11 04:47] LABS: Lactic Acid Follow Up (RFLX 1) 1.3 mmol/L (0.7-2.1)
[2024-05-11 05:00] LABS: Troponin I < 0.01 ng/ml (0.00-0.034)
--- NOTE | 2024-05-11 05:39 | PC.NURSE ---
Pt is alert and oriented x4 and currently tolerating RA well. Pt has no complaints and has tolerated IV fluid therapy well this shift. No acute changes noted this shift
--- NOTE | 2024-05-11 05:57 | PC.NURSE ---
Pt has a dexcom to R upper arm: admission: Dexcom- 146, FSBS- 153 0600: dexcom- 166, FSBS- 198
[2024-05-11 06:57] LABS: POC Glucose,Bedside 153 (70-110)
[2024-05-11 06:57] LABS: POC Glucose,Bedside 198 (70-110)
[2024-05-11 08:25] LABS: Basophils % 0.5 % (0.1-2.0); Eosinophils # 0.2 K/mm3 (0.0-0.4); Eosinophils % 2.7 % (0.1-12.0); Hematocrit 37.5 % (42.0-52.0); Hemoglobin 12.6 g/dL (14.1-18.0); Lymphocytes # 2.3 K/mm3 (0.7-4.5); Lymphocytes % 28.8 % (10-50); Mean Corpuscular HGB Conc 33.7 g/dL (31.8-35.4); Mean Corpuscular Hemoglobin 30.3 pg (27.0-31.2); Mean Corpuscular Volume 89.8 fl (80-94); Mean Platelet Volume 8.7 fl (7.4-10.4); Monocytes # 0.5 K/mm3 (0.1-1.0); Monocytes % 6.8 % (1.7-9.3); Neutrophils # 4.8 K/mm3 (1.8-7.8); Neutrophils % 61.2 % (37.0-80.0); Platelet Count 200 K/mm3 (142-424); Red Blood Count 4.17 M/mm3 (4.60-6.20); Red Cell Distribution Width 14.5 % (11.5-17.5); White Blood Count 7.9 K/mm3 (4.8-10.8)
[2024-05-11 08:28] LABS: Chloride 104 mmol/L (98-107)
[2024-05-11 08:29] LABS: Sodium 136 mmol/L (136-145)
[2024-05-11 08:31] LABS: Alanine Aminotransferase 46 U/L (12-78); Albumin Level 3.9 g/dl (3.5-5.0); Albumin/Globulin Ratio 1.4 (1.1-1.8); Alkaline Phosphatase 78 U/L (38-126); Aspartate Amino Transferase 33 U/L (17-59); Bilirubin,Total 0.4 mg/dl (0.2-1.3); Blood Urea Nitrogen 42 mg/dl (9-20); Carbon Dioxide 22 mmol/L (22.0-30.0); Creatinine Clearance Estimated 52 mL/min (50-200); Estimated Glomerular Filt Rate 37 ml/min (>60); GFR (African American) 44 ML/MIN (>60); Globulin 2.7 g/dL (1.3-3.2); Glucose 172 mg/dl (74-100); Total Protein,Serum 6.6 g/dl (6.3-8.2)
[2024-05-11] MEDS: PANTOPRAZOLE 40MG TABLET 40 MG PO (08:31)
[2024-05-11] MEDS: ASPIRIN 81MG CHEWABLE TABLET 81 MG PO (08:31)
[2024-05-11 08:32] LABS: Magnesium 1.4 mg/dl (1.6-2.3)
[2024-05-11] MEDS: hydroCHLOROthiazide 25MG TABLET 25 MG PO (08:32)
[2024-05-11] MEDS: FAMOTIDINE 20MG TABLET 20 MG PO (08:32)
[2024-05-11] MEDS: CLOPIDOGREL 75MG TAB 75 MG PO (08:32)
[2024-05-11] MEDS: ATENOLOL 25MG TABLET 25 MG PO (08:32)
[2024-05-11] MEDS: ATORVASTATIN 40MG TABLET 80 MG PO (08:32)
[2024-05-11] MEDS: LEVOTHYROXINE 75MCG (0.075MG) TAB 75 MCG PO (08:32)
[2024-05-11] MEDS: LISINOPRIL 10MG TABLET 10 MG PO (08:33)
--- NOTE | 2024-05-11 09:21 | HMH.PHAINT1 ---
Pharmacy Intervention Comments: MEDICATION RECONCILIATION COMPLETE USING LIST FROM MOST RECENT MD OFFICE VISIT NOTE (04/28/24).
[2024-05-11 11:06] LABS: POC Glucose,Bedside 180 (70-110)
[2024-05-11] MEDS: 0.9 % SODIUM CHLORIDE 1000ML 500 ML 250 ML IV (12:34)
--- NOTE | 2024-05-11 15:06 | EXP.DC.SUM ---
General Admission date:: 05/10/24 Discharge date: 05/11/24 HPI HPI HPI: This is a 78-year-old male history of CVA, hypertension, hyperlipidemia, NIDDM presented with vomiting followed by syncopal episode. Patient states that he was out all day in the sun. Only had 1 bottle of water throughout the day as well as 1 beer. Try to take breaks throughout the day inside an air conditioned car or take cold shower, but went to [facility] shortly prior to this visit. States at the [facility], he was eating multiple manage based side dishes with the patient he ate cooked and started feeling ill about an hour to an hour and a half afterward. [place] unwell, passed out, was lowered to the ground by family. Woke up less than a minute later, vomited a couple times and syncopized again. When patient woke up after a few seconds, family states that there was no postictal state or confusion. Patient states that he was actually feeling much better after passing out second time and vomiting. No blood in his vomit. No fevers or chills, chest pain, shortness of breath, neurologic deficits, headache, or any other concerns. Admitted for further monitoring and management. Hospital Course Hospital Course Hospital Course: 78-year-old male history of CVA, hypertension, hyperlipidemia, IDDM presented with vomiting followed by syncopal episode. Patient states that he was out all day in the sun. on arrival patient hemodinamically stable, non on apparent distress, no neuro deficit. GCS 15. Workup independently interpreted and significant for leukocytosis 12.1. Chemistry with MACKENZIE creatinine 2.9, BUN 44, anion gap elevated 22.5. Glucose 160. LFTs normal. Chest x-ray with large gastric bubble, but no other acute findings. No intrathoracic findings. BNP negative. Anion gap elevated at greater than 20, VBG with metabolic acidosis and lactate 3.6. Because patient has MACKENZIE with creatinine 2.9 up from normal baseline, hydration bolus x2 was given. Ed requested admission for further inpatient management. Agreed for it. Plan as follow: - Syncope likely hypovolemic - denied Dizziness, feels back to baselie MACKENZIE, secondary to dehydration - improved after hydration ptient had patient had significant improvement of her hydration with normal saline. Patient creatinine improved, patient counseled on keeping up with hydration. Patient also counseled on following up with PCP. Patient is requesting to be discharged. Patient will be discharged in stable condition On the date of discharge, the patient reported feeling stable. The patient was found not to be in any acute distress, and no new abnormalities on physical examination. Further, the patient expressed appropriate understanding of, and agreement with, the discharge recommendations, medications, and plan. Time spent 37 mins Exam Data for Last 24 hours Vital signs and Labs for Last 24 Hours: Temp Pulse Resp BP Pulse Ox O2 Del Method 97.9 F 50 L 18 149/72 H 95 Room Air 05/11/24 11:39 05/11/24 12:00 05/11/24 11:39 05/11/24 11:39 05/11/24 11:39 05/11/24 14:47 Laboratory Results - last 24 hr 05/10/24 21:48: WBC 12.1 H, RBC 4.71, Hgb 13.5 L, Hct 43.1, MCV 91.5, MCH 28.8, MCHC 31.4 L, RDW 14.3, Plt Count 257, MPV 8.7, Neut % (Auto) 59.7, Lymph % (Auto) 29.4, [place] % (Auto) 7.5, Eos % (Auto) 2.4, Baso % (Auto) 1.1, Neut # (Auto) 7.2, Lymph # (Auto) 3.6, [place] # (Auto) 0.9, Eos # (Auto) 0.3, Baso # (Auto) 0.1, VBG pH 7.27 L, VBG pCO2 42.4, VBG pO2 41.6 H, VBG HCO3 19.1 L, VBG Total CO2 20.4 L, VBG O2 Saturation 69.0, VBG Base Excess -7.8 L, VBG Lactic Acid 3.6 H, Sodium 139, Potassium 4.5, Chloride 102, Carbon Dioxide 19 L, Anion Gap 22.5 H, BUN 44 H, Creatinine 2.90 H, Estimated Creat Clear 32, Estimated GFR 21 L, Est GFR ( Amer) 26 L, Glucose 160 H, Calcium 9.5, Total Bilirubin 0.5, AST 42, ALT 55, Alkaline Phosphatase 71, Troponin I < 0.01, NT-Pro-B Natriuret Pep 208, Total Protein 7.2, Albumin 4.5, Globulin 2.7, Albumin/Globulin Ratio 1.7, Lipase 418 H 05/11/24 00:16: POC Glucose 153 H 05/11/24 01:25: Troponin I < 0.01 05/11/24 04:21: Lactate 1.3, Troponin I < 0.01 05/11/24 05:50: POC Glucose 198 H 05/11/24 07:20: WBC 7.9 D, RBC 4.17 L, Hgb 12.6 L, Hct 37.5 L, MCV 89.8, MCH 30.3, MCHC 33.7, RDW 14.5, Plt Count 200, MPV 8.7, Neut % (Auto) 61.2, Lymph % (Auto) 28.8, [place] % (Auto) 6.8, Eos % (Auto) 2.7, Baso % (Auto) 0.5, Neut # (Auto) 4.8, Lymph # (Auto) 2.3, [place] # (Auto) 0.5, Eos # (Auto) 0.2, Baso # (Auto) 0.0, Sodium 136, Potassium 4.0, Chloride 104, Carbon Dioxide 22, Anion Gap 14.0, BUN 42 H, Creatinine 1.80 H D, Estimated Creat Clear 52, Estimated GFR 37 L, Est GFR ( Amer) 44 L D, Glucose 172 H, Calcium 9.0, Magnesium 1.4 L, Total Bilirubin 0.4, AST 33, ALT 46, Alkaline Phosphatase 78, Total Protein 6.6, Albumin 3.9 D, Globulin 2.7, Albumin/Globulin Ratio 1.4 05/11/24 10:46: POC Glucose 180 H I & O for Last 24 hours: Intake & Output 05/08/24 05/09/24 05/10/24 05/11/24 23:59 23:59 23:59 23:59 Intake Total 965 / 965 Output Total 0 / 0 Balance 965 / 965 Weight 106.594 kg 106.594 kg Constitutional Constitutional: no acute distress *Routine HEENT Exam Head: Present normocephalic Eye: Present EOMI and PERRL ENT: Present mucous membranes moist *Routine Neck Exam Neck: Present supple; Absent lymphadenopathy *Routine Respiratory Exam Respiratory: Present CTA bilaterally *Routine Cardiovascular Exam Cardiovascular: Present RRR *Routine Abdominal Exam Abdominal: Present soft and normoactive bowel sounds; Absent tenderness *Routine Extremities Exam Extremities: Absent cyanosis, clubbing or edema *Routine Skin Exam Skin: Present warm; Absent rash *Routine Neurological Exam Neurological: Present alert and oriented X3 Results Data Completed and Pending Labs on day of discharge: Labs from last 24 hours 05/11/24 05/11/24 05/11/24 10:46 07:20 05:50 WBC 7.9 D RBC 4.17 L Hgb 12.6 L Hct 37.5 L MCV 89.8 MCH 30.3 MCHC 33.7 RDW 14.5 Plt Count 200 MPV 8.7 Neut % (Auto) 61.2 Lymph % (Auto) 28.8 [place] % (Auto) 6.8 Eos % (Auto) 2.7 Baso % (Auto) 0.5 Neut # (Auto) 4.8 Lymph # (Auto) 2.3 [place] # (Auto) 0.5 Eos # (Auto) 0.2 Baso # (Auto) 0.0 VBG pH VBG pCO2 VBG pO2 VBG HCO3 VBG Total CO2 VBG O2 Saturation VBG Base Excess VBG Lactic Acid Sodium 136 Potassium 4.0 Chloride 104 Carbon Dioxide 22 Anion Gap 14.0 BUN 42 H Creatinine 1.80 H D Estimated Creat Clear 52 Estimated GFR 37 L Est GFR ( Amer) 44 L D Glucose 172 H POC Glucose 180 H 198 H Lactate Calcium 9.0 Magnesium 1.4 L Total Bilirubin 0.4 AST 33 ALT 46 Alkaline Phosphatase 78 Troponin I NT-Pro-B Natriuret Pep Total Protein 6.6 Albumin 3.9 D Globulin 2.7 Albumin/Globulin Ratio 1.4 Lipase 05/11/24 05/11/24 05/11/24 04:21 01:25 00:16 WBC RBC Hgb Hct MCV MCH MCHC RDW Plt Count MPV Neut % (Auto) Lymph % (Auto) [place] % (Auto) Eos % (Auto) Baso % (Auto) Neut # (Auto) Lymph # (Auto) [place] # (Auto) Eos # (Auto) Baso # (Auto) VBG pH VBG pCO2 VBG pO2 VBG HCO3 VBG Total CO2 VBG O2 Saturation VBG Base Excess VBG Lactic Acid Sodium Potassium Chloride Carbon Dioxide Anion Gap BUN Creatinine Estimated Creat Clear Estimated GFR Est GFR ( Amer) Glucose POC Glucose 153 H Lactate 1.3 Calcium Magnesium Total Bilirubin AST ALT Alkaline Phosphatase Troponin I < 0.01 < 0.01 NT-Pro-B Natriuret Pep Total Protein Albumin Globulin Albumin/Globulin Ratio Lipase 05/10/24 21:48 WBC 12.1 H RBC 4.71 Hgb 13.5 L Hct 43.1 MCV 91.5 MCH 28.8 MCHC 31.4 L RDW 14.3 Plt Count 257 MPV 8.7 Neut % (Auto) 59.7 Lymph % (Auto) 29.4 [place] % (Auto) 7.5 Eos % (Auto) 2.4 Baso % (Auto) 1.1 Neut # (Auto) 7.2 Lymph # (Auto) 3.6 [place] # (Auto) 0.9 Eos # (Auto) 0.3 Baso # (Auto) 0.1 VBG pH 7.27 L VBG pCO2 42.4 VBG pO2 41.6 H VBG HCO3 19.1 L VBG Total CO2 20.4 L VBG O2 Saturation 69.0 VBG Base Excess -7.8 L VBG Lactic Acid 3.6 H Sodium 139 Potassium 4.5 Chloride 102 Carbon Dioxide 19 L Anion Gap 22.5 H BUN 44 H Creatinine 2.90 H Estimated Creat Clear 32 Estimated GFR 21 L Est GFR ( Amer) 26 L Glucose 160 H POC Glucose Lactate Calcium 9.5 Magnesium Total Bilirubin 0.5 AST 42 ALT 55 Alkaline Phosphatase 71 Troponin I < 0.01 NT-Pro-B Natriuret Pep 208 Total Protein 7.2 Albumin 4.5 Globulin 2.7 Albumin/Globulin Ratio 1.7 Lipase 418 H DS: Diagnosis Discharge Diagnosis (1) Syncope: Status: Acute Code(s): R55 - Syncope and collapse Qualifiers: Encounter type: initial encounter Syncope type: heat syncope Qualified Code(s): T67.1XXA - Heat syncope, initial encounter (2) MACKENZIE (acute kidney injury): Status: Acute Code(s): N17.9 - Acute kidney failure, unspecified (3) Diabetes type 2, controlled: Status: Acute Code(s): E11.9 - Type 2 diabetes mellitus without complications Qualifiers: Diabetes mellitus complication status: with other specified complication Diabetes mellitus supervisor intermediates insulin use: without supervisor intermediates use Qualified Code(s): E11.69 - Type 2 diabetes mellitus with other specified complication (4) Hypertension: Status: Acute Code(s): I10 - Essential (primary) hypertension Qualifiers: Hypertension type: unspecified Qualified Code(s): I10 - Essential (primary) hypertension (5) Arteriosclerotic vascular disease: Status: Acute Code(s): I70.90 - Unspecified atherosclerosis (6) History of CVA (cerebrovascular accident): Status: Acute Code(s): Z86.73 - Personal history of transient ischemic attack (TIA), and cerebral infarction without residual deficits Meds Home Medications and Allergies Home Medications Medication Instructions Recorded Confirmed Type atenolol 25 mg tablet 25 mg PO DAILY Blood Pressure 05/27/18 05/11/24 History atorvastatin 80 mg tablet 80 mg PO DAILY Cholesterol 05/27/18 05/11/24 History clopidogrel 75 mg tablet (Plavix) 75 mg PO DAILY 05/27/18 05/11/24 History hydrochlorothiazide 25 mg tablet 25 mg PO DAILY Blood Pressure 05/27/18 05/11/24 History levothyroxine 75 mcg tablet 75 mcg PO DAILY thyroid 05/27/18 05/11/24 History (Synthroid) metformin 1,000 mg tablet 1,000 mg PO BID Diabetes 05/27/18 05/11/24 History aspirin 81 mg chewable tablet 81 mg PO DAILY 05/24/23 05/11/24 History famotidine 20 mg tablet 20 mg PO BID 05/24/23 05/11/24 History glimepiride 2 mg tablet 2 mg PO DAILY Diabetes 05/24/23 05/11/24 History insulin glargine 100 unit/mL 25 unit SQ HS Diabetes 04/18/24 05/11/24 History subcutaneous solution (Lantus U-100 Insulin) tadalafil 10 mg tablet (Cialis) 10 mg PO DAILY PRN sexual activity 04/28/24 05/11/24 Rx #10 tabs lisinopril 10 mg tablet 10 mg PO DAILY 05/11/24 05/11/24 History New Prescriptions to Start Prescriptions: Allergies Allergy/AdvReac Type Severity Reaction Status Date / Time No Known Allergies Allergy Verified 04/28/24 10:53 Discharge Plan Disposition Patient Disposition: Home, Self-Care Condition: Good Follow up Plan Follow up with: Keysha Clark APRN [Primary Care Provider] - 1 week Prescriptions/Medication Reconciliation: Continued hydrochlorothiazide 25 mg tablet 25 mg PO DAILY levothyroxine [Synthroid] 75 mcg tablet 75 mcg PO DAILY atenolol 25 mg tablet 25 mg PO DAILY atorvastatin 80 mg tablet 80 mg PO DAILY metformin 1,000 mg tablet 1,000 mg PO BID clopidogrel [Plavix] 75 mg tablet 75 mg PO DAILY insulin glargine [Lantus U-100 Insulin] 100 unit/mL solution 25 unit SUB-Q HS tadalafil [Cialis] 10 mg tablet 10 mg PO DAILY PRN (Reason: sexual activity) Qty: 10 0RF Rx Instructions: administer approximately 30min before sexual activity; do not use more than 1 dose per 24hrs glimepiride 2 mg Tablet 2 mg PO DAILY famotidine 20 mg Tablet 20 mg PO BID aspirin 81 mg Tablet,Chewable 81 mg PO DAILY lisinopril 10 mg Tablet 10 mg PO DAILY Problem Reconciliation Problems Reviewed?: Yes Patient Discharge Instructions ACTIVITY: Ambulate as tolerated DIET: continue same diet Patient Instructions: DI for Syncope in Adults (Fainting), Acute Kidney Injury, DI for Acute Kidney Injury Providers Primary Care Provider: Keysha Clark Admit Provider: Cristobal Renee Attending Provider: Cristobal Renee
[2024-05-11 15:45] LABS: Basophils % 0.6 % (0.1-2.0); Eosinophils # 0.2 K/mm3 (0.0-0.4); Hematocrit 38.2 % (42.0-52.0); Hemoglobin 12.4 g/dL (14.1-18.0); Lymphocytes # 1.9 K/mm3 (0.7-4.5); Lymphocytes % 27.4 % (10-50); Mean Corpuscular HGB Conc 32.4 g/dL (31.8-35.4); Mean Corpuscular Hemoglobin 29.3 pg (27.0-31.2); Mean Corpuscular Volume 90.6 fl (80-94); Mean Platelet Volume 8.3 fl (7.4-10.4); Monocytes # 0.4 K/mm3 (0.1-1.0); Monocytes % 6.4 % (1.7-9.3); Neutrophils # 4.3 K/mm3 (1.8-7.8); Neutrophils % 62.7 % (37.0-80.0); Platelet Count 167 K/mm3 (142-424); Red Blood Count 4.22 M/mm3 (4.60-6.20); Red Cell Distribution Width 14.3 % (11.5-17.5); White Blood Count 6.9 K/mm3 (4.8-10.8)
[2024-05-11 16:51] LABS: POC Glucose,Bedside 207 (70-110)
[2024-05-11 17:05] LABS: Anion Gap 12.4 mEq/L (5-15); Blood Urea Nitrogen 35 mg/dl (9-20); Calcium 9.4 mg/dl (8.4-10.2); Carbon Dioxide 27 mmol/L (22.0-30.0); Chloride 102 mmol/L (98-107); Creatinine Clearance Estimated 67 mL/min (50-200); Estimated Glomerular Filt Rate 49 ml/min (>60); GFR (African American) 59 ML/MIN (>60); Glucose 195 mg/dl (74-100); Potassium 4.4 mmoL/L (3.5-5.1); Sodium 137 mmol/L (136-145)
--- NOTE | 2024-05-12 15:20 | SW/DCPLANNER ---
Follow up phone call: patient stated that he is doing well at home. Patient stated that he does have an appointment w/ his PCP tomorrow. Patient did not have any further needs/questions at this time.
== END 2024-05-11 18:00 | disposition home or self-care (01) ==
LOC: ER 22:21 → 2ND 23:16
PROVIDERS: Nurse Practitioner Family; Admitting Provider Internal Medicine; Emergency Provider Emergency Medicine; PCP Nurse Practitioner Family; Visit Provider Internal Medicine
DX: T67.1XXA Heat syncope, initial encounter (principal); N17.9 Acute kidney failure, unspecified; I10 Essential (primary) hypertension; Z79.899 Other long term (current) drug therapy; Z79.4 Long term (current) use of insulin; E11.9 Type 2 diabetes mellitus without complications; E86.0 Dehydration; Z86.73 Personal history of transient ischemic attack (TIA), and cerebral infarction without residual deficits
CPT/HCPCS: 36415; 71046; 80048; 80053; 82803; 82962; 83605; 83690; 83735; 83880; 84484; 85025; 93005; 99285; G0378; J7120

== ENCOUNTER 2024-05-13 15:31 | Outpatient (CLI) | payer OTHER, MEDICARE, SELFPAY ==
[2024-05-13 13:59] LABS: Alanine Aminotransferase 50 U/L (12-78); Albumin Level 4.1 g/dl (3.5-5.0); Albumin/Globulin Ratio 1.5 (1.1-1.8); Alkaline Phosphatase 80 U/L (38-126); Anion Gap 11.2 mEq/L (5-15); Aspartate Amino Transferase 38 U/L (17-59); Bilirubin,Total 0.5 mg/dl (0.2-1.3); Blood Urea Nitrogen 29 mg/dl (9-20); Calcium 9.9 mg/dl (8.4-10.2); Carbon Dioxide 28 mmol/L (22.0-30.0); Chloride 103 mmol/L (98-107); Estimated Glomerular Filt Rate 59 ml/min (>60); GFR (African American) 71 ML/MIN (>60); Globulin 2.7 g/dL (1.3-3.2); Glucose 185 mg/dl (74-100); Potassium 5.2 mmoL/L (3.5-5.1); Sodium 137 mmol/L (136-145); Total Protein,Serum 6.8 g/dl (6.3-8.2)
[2024-05-13 13:59] LABS: Basophils % 0.6 % (0.1-2.0); Eosinophils # 0.2 K/mm3 (0.0-0.4); Eosinophils % 2.9 % (0.1-12.0); Hematocrit 38.1 % (42.0-52.0); Hemoglobin 13.4 g/dL (14.1-18.0); Lymphocytes # 1.3 K/mm3 (0.7-4.5); Lymphocytes % 16.9 % (10-50); Mean Corpuscular HGB Conc 35.2 g/dL (31.8-35.4); Mean Corpuscular Hemoglobin 32.2 pg (27.0-31.2); Mean Corpuscular Volume 91.5 fl (80-94); Mean Platelet Volume 9.8 fl (7.4-10.4); Monocytes # 0.6 K/mm3 (0.1-1.0); Monocytes % 8.2 % (1.7-9.3); Neutrophils # 5.3 K/mm3 (1.8-7.8); Neutrophils % 71.4 % (37.0-80.0); Platelet Count 208 K/mm3 (142-424); Red Blood Count 4.17 M/mm3 (4.60-6.20); Red Cell Distribution Width 14.5 % (11.5-17.5); White Blood Count 7.5 K/mm3 (4.8-10.8)
[2024-05-13 16:26] LABS: Hemoglobin A1C 7.4 % (4.0-6.0)
[2024-05-14 10:22] LABS: Thyroid Stimulating Hormone 2.93 uIU/mL (0.465-4.68)
== END 2024-05-13 23:59 | disposition home or self-care (01) ==
LOC: LAB.DROPOF 15:32
PROVIDERS: PCP Nurse Practitioner Family; Visit Provider Nurse Practitioner Family
DX: N17.9 Acute kidney failure, unspecified (principal); E11.69 Type 2 diabetes mellitus with other specified complication; E03.9 Hypothyroidism, unspecified
CPT/HCPCS: 80050; 80053; 83036; 84443; 85025

== ENCOUNTER 2024-05-20 15:17 | Outpatient (CLI) | payer OTHER, MEDICARE, SELFPAY ==
--- NOTE | 2024-05-20 15:30 | XR_ITS ---
FINAL REPORT CLINICAL HISTORY: cervicalgia FINDINGS: CERVICAL SPINE Five views demonstrate no acute fracture. There are moderate degenerative changes with multilevel mild neural foraminal narrowing. There is no malalignment. IMPRESSION: Degenerative changes as above. Reviewed, Interpreted and Dictated by Danilo Velasquez III, MD Transcribed by Oumou Garcia Authenticated and [facility]
== END 2024-05-20 23:59 | disposition home or self-care (01) ==
LOC: RAD 15:25
PROVIDERS: PCP Nurse Practitioner Family; Visit Provider Nurse Practitioner Family
DX: M54.2 Cervicalgia (principal); R29.898 Other symptoms and signs involving the musculoskeletal system
CPT/HCPCS: 72050

== ENCOUNTER 2024-05-26 13:09 | Outpatient (CLI) | payer MEDICARE, SELFPAY ==
[2024-05-26 13:19] LABS: Basophils # 0.1 K/mm3 (0-0.2); Basophils % 0.5 % (0.1-2.0); Eosinophils # 0.2 K/mm3 (0.0-0.4); Hemoglobin 13.9 g/dL (14.1-18.0); Lymphocytes # 3.1 K/mm3 (0.7-4.5); Lymphocytes % 19.9 % (10-50); Mean Corpuscular HGB Conc 33.1 g/dL (31.8-35.4); Mean Corpuscular Volume 90.6 fl (80-94); Mean Platelet Volume 9.6 fl (7.4-10.4); Monocytes # 1.1 K/mm3 (0.1-1.0); Monocytes % 7.1 % (1.7-9.3); Neutrophils % 71.5 % (37.0-80.0); Platelet Count 290 K/mm3 (142-424); Red Blood Count 4.63 M/mm3 (4.60-6.20); Red Cell Distribution Width 14.5 % (11.5-17.5); White Blood Count 15.3 K/mm3 (4.8-10.8)
[2024-05-26 13:37] LABS: MANUAL DIFFERENTIAL MANUAL DIFFERENTIAL (MANUAL DIFF)
[2024-05-26 13:42] LABS: Chloride 103 mmol/L (98-107); Potassium 4.6 mmoL/L (3.5-5.1); Sodium 136 mmol/L (136-145)
[2024-05-26 13:44] LABS: Blood Urea Nitrogen 38 mg/dl (9-20); Estimated Glomerular Filt Rate 59 ml/min (>60); GFR (African American) 71 ML/MIN (>60)
[2024-05-26 13:45] LABS: Alanine Aminotransferase 34 U/L (12-78); Albumin Level 4.3 g/dl (3.5-5.0); Albumin/Globulin Ratio 1.6 (1.1-1.8); Alkaline Phosphatase 75 U/L (38-126); Anion Gap 14.6 mEq/L (5-15); Aspartate Amino Transferase 26 U/L (17-59); Bilirubin,Total 0.4 mg/dl (0.2-1.3); Calcium 9.6 mg/dl (8.4-10.2); Carbon Dioxide 23 mmol/L (22.0-30.0); Globulin 2.7 g/dL (1.3-3.2); Glucose 136 mg/dl (74-100)
[2024-05-26 15:45] LABS: Eosinophils % 1 % (0-3); Lymphocytes % 21 % (10-50); Monocytes % 8 % (2-9); Neutrophils % 70 % (42-76); Platelet Estimate Normal; RBC Morphology Normal; Total Cells Counted 100
== END 2024-05-26 23:59 | disposition home or self-care (01) ==
LOC: LAB.DROPOF 13:09
PROVIDERS: PCP Nurse Practitioner Family; Visit Provider Nurse Practitioner Family
DX: R53.83 Other fatigue (principal)
CPT/HCPCS: 80053; 85007; 85025; 85027

== ENCOUNTER 2024-06-03 12:55 | Outpatient (RCR) | payer MEDICARE, SELFPAY | END 2024-06-03 12:59 | disposition home or self-care (01) | LOC: PT 12:55 | PROVIDERS: Visit Provider Nurse Practitioner Family | DX: M54.2 Cervicalgia (principal); R29.898 Other symptoms and signs involving the musculoskeletal system | CPT/HCPCS: 97163 ==

== ENCOUNTER 2024-06-03 16:15 | Outpatient (CLI) | payer MEDICARE, SELFPAY ==
[2024-06-03 15:37] LABS: Basophils # 0.1 K/mm3 (0-0.2); Basophils % 0.7 % (0.1-2.0); Eosinophils # 0.2 K/mm3 (0.0-0.4); Hematocrit 43.8 % (42.0-52.0); Hemoglobin 14.3 g/dL (14.1-18.0); Lymphocytes # 1.9 K/mm3 (0.7-4.5); Lymphocytes % 22.7 % (10-50); Mean Corpuscular HGB Conc 32.6 g/dL (31.8-35.4); Mean Corpuscular Hemoglobin 29.8 pg (27.0-31.2); Mean Corpuscular Volume 91.5 fl (80-94); Mean Platelet Volume 8.4 fl (7.4-10.4); Monocytes # 0.6 K/mm3 (0.1-1.0); Monocytes % 7.5 % (1.7-9.3); Neutrophils # 5.7 K/mm3 (1.8-7.8); Neutrophils % 67.1 % (37.0-80.0); Platelet Count 254 K/mm3 (142-424); Red Blood Count 4.79 M/mm3 (4.60-6.20); Red Cell Distribution Width 14.5 % (11.5-17.5); White Blood Count 8.4 K/mm3 (4.8-10.8)
== END 2024-06-03 23:59 | disposition home or self-care (01) ==
LOC: LAB.DROPOF 16:15
PROVIDERS: PCP Nurse Practitioner Family; Visit Provider Nurse Practitioner Family
DX: D72.829 Elevated white blood cell count, unspecified (principal)
CPT/HCPCS: 85025

== ENCOUNTER 2024-06-06 14:51 | Outpatient (CLI) | payer MEDICARE, SELFPAY ==
--- NOTE | 2024-06-06 14:58 | MR_ITS ---
FINAL REPORT TECHNIQUE: Multiplanar MR without gadolinium enhancement CLINICAL HISTORY: cervicalgia, decreased ROM of neck COMPARISON: None FINDINGS: Limited images of the posterior fossa are unremarkable. Alignment is normal. There is multifocal compromise of the cervical spinal cord extending from the C3-4 level through the C6-7 level. This is secondary to a combination of disc disease, congenital bony narrow canal, and thickening of the posterior longitudinal ligament. There is abnormal signal in the cervical cord at the C5-6 level, that may represent myelomalacia, cord edema, or possibly a small syrinx. C2-3: A left lateral disc protrusion is present, as well as a moderate annular bulge producing mild left lateral recess and left neural foraminal narrowing. C3-4: There is moderate central canal stenosis secondary to the combination of disc disease, congenital narrowing of the canal, and thickened posterior longitudinal ligament. There is severe bilateral neural foraminal narrowing. C4-5: Moderate central canal stenosis is present, producing severe lateral recess and neural foraminal narrowing on the right, moderate neural foraminal narrowing on the left. C5-6: Severe central canal stenosis is present with cord compromise, moderate bilateral neural foraminal narrowing. C6-7: Severe central canal stenosis with mild cord compromise is present, with bilateral right greater than left neural foraminal narrowing. C7-T1: A small annular bulge is present. IMPRESSION: Multi focal compromise of the cervical cord, most severe at the C5-6 level where there is abnormal signal in the cord, likely representing either myelomalacia, cord edema, or a small syrinx. Multilevel central canal stenosis is noted extending from the C3-4 level through the C6-7 level as described. Multilevel neural foraminal narrowing, most severe at the C3-4, C4-5 levels. Reviewed, Interpreted and Dictated by Brandyn Brice MD Transcribed by Chio Russ Authenticated and [facility]
== END 2024-06-06 23:59 | disposition home or self-care (01) ==
LOC: RAD 14:52
PROVIDERS: PCP Nurse Practitioner Family; Visit Provider Nurse Practitioner Family
DX: R29.898 Other symptoms and signs involving the musculoskeletal system (principal); M54.2 Cervicalgia
CPT/HCPCS: 72141

== ENCOUNTER 2025-08-19 02:04 | Emergency (ER) | payer MEDICARE, SELFPAY ==
[2025-08-19 01:48] VITALS: BP 181/89; PULSE 93; RESP 20; TEMP 36.6; O2SAT 96; BMI 33.9
--- NOTE | 2025-08-19 02:02 | PC.NURSE ---
Pt awake alert and oriented Skin pink warm and dry Resp full and easy Speech clear and appropriate IV site without redness or edema. Pt in SR per continuous heart monitor
--- NOTE | 2025-08-19 02:06 | XR_ITS ---
PROCEDURE INFORMATION: Exam: XR Chest Exam date and time: 08/19/2025 2:31 AM Age: 79 years old Clinical indication: Other: Dizzy; Additional info: Dizziness TECHNIQUE: Imaging protocol: Radiologic exam of the chest. Views: 1 view. COMPARISON: CR XR CHEST 2V 05/10/2024 10:29 PM FINDINGS: Lungs: Unremarkable. No consolidation. Pleural spaces: Unremarkable. No pleural effusion. No pneumothorax. Heart/Mediastinum: Unremarkable. No cardiomegaly. Bones/joints: Unremarkable. IMPRESSION: No acute findings.
--- NOTE | 2025-08-19 02:07 | ECG_ITS ---
APPROVED REPORT Exam: Resting ECG HR:91 bpm ECG Measurements Heart Rate 91 AXES OK 176 P 66 QRSd 126 QRS -64 QT 395 T 85 QTc 444 Conclusion SINUS RHYTHM LEFT ANTERIOR FASCICULAR BLOCK [QRS AXIS <= -45, QR IN I, RS IN II] LEFT VENTRICULAR HYPERTROPHY AND ST-T CHANGE [VOLTAGE CRITERIA PLUS ST/T ABNORMALITY] POSSIBLE SEPTAL MYOCARDIAL INFARCTION , OF INDETERMINATE AGE [30 ms Q WAVE IN V1/V2] ABNORMAL ECG UNCONFIRMED REPORT Electronically signed by : AIME ORTIZ, 08/20/2025 00:31:19
--- NOTE | 2025-08-19 02:07 | HMH.EDGENADL ---
Discharge Plan Disposition Patient Disposition: Home, Self-Care Prescriptions Prescriptions: No Action cyclobenzaprine 10 mg tablet 10 mg PO HS PRN (Reason: muscle spasm) Qty: 30 0RF hydrochlorothiazide 25 mg tablet 25 mg PO DAILY levothyroxine [Synthroid] 75 mcg tablet 75 mcg PO DAILY atenolol 25 mg tablet 25 mg PO DAILY atorvastatin 80 mg tablet 80 mg PO DAILY metformin 1,000 mg tablet 1,000 mg PO BID clopidogrel [Plavix] 75 mg tablet 75 mg PO DAILY insulin glargine [Lantus U-100 Insulin] 100 unit/mL solution 25 unit SUB-Q HS tadalafil [Cialis] 10 mg tablet 10 mg PO DAILY PRN (Reason: sexual activity) Qty: 10 0RF Rx Instructions: administer approximately 30min before sexual activity; do not use more than 1 dose per 24hrs triamcinolone acetonide 0.1 % cream 1 applic topical TID 10 Days Qty: 80 0RF permethrin [Elimite] 5 % cream 1 applic topical Q14D Qty: 120 0RF Rx Instructions: apply second treatment 14 days after first guaifenesin 1,200 mg tablet extended release 12hr 1,200 mg PO BID PRN (Reason: congestion) Qty: 30 0RF fluticasone propionate [Flonase Allergy Relief] 50 mcg/actuation spray,suspension 1 spray intranasal DAILY PRN (Reason: congestion) Qty: 16 0RF Rx Instructions: administer into each nostril indomethacin 50 mg capsule 50 mg PO BID PRN (Reason: Gout) Qty: 30 0RF Rx Instructions: administer with food or milk colchicine 0.6 mg tablet 0.6 mg PO BID PRN (Reason: Gout) Qty: 30 0RF ketoconazole 2 % cream See Rx Instructions .ROUTE .COMPLEX Qty: 30 1RF Dose Instruction: APPLY TOPICALLY TO THE AFFECTED AREA(S) TWICE DAILY FOR 4 WEEKS Rx Instructions: APPLY TOPICALLY TO THE AFFECTED AREA(S) TWICE DAILY FOR 4 WEEKS famotidine 20 mg Tablet 20 mg PO BID aspirin 81 mg Tablet,Chewable 81 mg PO DAILY lisinopril 10 mg Tablet 10 mg PO DAILY Activity Restrictions/Add. Instructions Additional Instructions/Restrictions: Please follow-up with your primary care provider. Please return to the emergency department if you develop any new or worsening symptoms or become concerned for your health. Clinical Impressions Clinical Impression: Dizziness Instructions Patient Instructions: DI for Syncope in Adults (Fainting), DI for Syncope in Children (Fainting) Print Language Print Language: Welsh Discharge ED Provider: Ruddy Wilder Adult HPI General Chief complaint: Syncope Stated complaint: dizzy Time Seen by Provider: 08/19/25 02:07 Mode of Arrival: EMS Source of Information: Patient Description of Symptoms (Recalled from ER Triage Doc. by RN): Pt states he had a near syncopal episode at home History of Present Illness HPI narrative: 79-year-old male with history of diabetes, prior strokes presents for episode of queasiness/dizziness. He reports that he was eating when his stomach started to feel little queasy. He went to the bathroom and started to feel dizzy. He went back and sat in his chair and called 911. The dizziness resolved after maybe 10 minutes or so. He denies any loss of consciousness or trauma. He denies any numbness tingling weakness or any other symptoms besides some itching of his hands bilaterally during that time. He reports that he has had multiple strokes before and that this did not feel at all like his prior strokes. He also had an episode of diarrhea around this time. He denies any chest pain shortness of breath during any of this. Related Data Home Medications ?Medication ?Instructions ?Recorded ?Confirmed atenolol 25 mg tablet 25 mg PO DAILY Blood Pressure 05/27/18 03/05/25 atorvastatin 80 mg tablet 80 mg PO DAILY Cholesterol 05/27/18 03/05/25 clopidogrel 75 mg tablet (Plavix) 75 mg PO DAILY 05/27/18 03/05/25 hydrochlorothiazide 25 mg tablet 25 mg PO DAILY Blood Pressure 05/27/18 03/05/25 levothyroxine 75 mcg tablet 75 mcg PO DAILY thyroid 05/27/18 03/05/25 (Synthroid) metformin 1,000 mg tablet 1,000 mg PO BID Diabetes 05/27/18 03/05/25 aspirin 81 mg chewable tablet 81 mg PO DAILY 05/24/23 03/05/25 famotidine 20 mg tablet 20 mg PO BID 05/24/23 03/05/25 insulin glargine 100 unit/mL 25 unit SQ HS Diabetes 04/18/24 03/05/25 subcutaneous solution (Lantus U-100 Insulin) lisinopril 10 mg tablet 10 mg PO DAILY 05/11/24 03/05/25 Previous Rx's ?Medication ?Instructions ?Recorded tadalafil 10 mg tablet (Cialis) 10 mg PO DAILY PRN sexual activity 04/28/24 #10 tabs cyclobenzaprine 10 mg tablet 10 mg PO HS PRN muscle spasm #30 05/20/24 tabs colchicine 0.6 mg tablet 0.6 mg PO BID PRN Gout #30 tabs 06/20/24 indomethacin 50 mg capsule 50 mg PO BID PRN Gout #30 caps 06/20/24 permethrin 5 % topical cream 1 applic topical Q14D 2 doses #120 07/08/24 (Elimite) grams triamcinolone acetonide 0.1 % 1 applic topical TID 10 days #80 07/08/24 topical cream grams fluticasone propionate 50 1 spray intranasal DAILY PRN 11/10/24 mcg/actuation nasal congestion #16 grams spray,suspension (Flonase Allergy Relief) guaifenesin 1,200 mg tablet, 1,200 mg PO BID PRN congestion #30 11/10/24 extended release 12 hr tabs ketoconazole 2 % topical cream See Rx Instructions .Route 03/30/25 .COMPLEX #30 grams Allergies Allergy/AdvReac Type Severity Reaction Status Date / Time Iodinated Contrast Media Allergy Blister Verified 11/10/24 14:19 [facility] Disclaimer: The information contained in this section may have been updated after the patient was seen, as this information can be updated by other users. Medical History (Updated 08/19/25 @ 03:57 by Ruddy Wilder MD) Acute CVA (cerebrovascular accident) Vasovagal syncope Sacral fracture Hip pain Right hip pain Syncope MACKENZIE (acute kidney injury) History of CVA (cerebrovascular accident) Cervicalgia Decreased ROM of neck Right upper limb pain Scabies Sinus infection Elevated WBC count Family History Other Family history of brain tumor Family history of diabetes mellitus Family history of stroke Social History Smoking Status: Never smoker alcohol intake: never substance use type: denies use current occupational status: other Travel in the last 8 weeks?: None housing: other Have you lived/traveled outside [place] in past 30 days?: No Contact w/someone who lives/traveled outside [place] past 30 days?: No Exposure to someone with infectious disease in past 14 days?: No Do you have a fever (greater than 100.4 F or 38 C)?: No Have you tested positive for COVID-19?: No Exposed to someone with COVID-19 in past 14 days?: No Do you have a sore throat?: No Do you have a cough?: No Do you have any weakness?: No Do you have any diarrhea?: No Are you experiencing any unusual bleeding?: No Do you have any muscle aches/pain?: No Do you have any abdominal pain?: No Are you experiencing loss of taste or smell?: No Other Medical History Have you received the Flu Vaccine for this season: No Have you received the Pneumonia Vaccine: Yes ROS Obtained: Yes All systems reviewed & no additional complaints except as documented Physical Exam General General appearance: alert and in no apparent distress Head Head exam: atraumatic and normocephalic Eye Eye exam: Present normal appearance, PERRL and EOMI ENT ENT exam: Present normal oropharynx and normal external ear exam Neck Neck exam: Present normal inspection and full ROM Chest Chest inspection: Present normal inspection and symmetric chest wall rise; Absent tenderness Respiratory Respiratory exam: Present normal lung sounds bilaterally; Absent respiratory distress Cardiovascular Cardiovascular exam: Present regular rate and normal rhythm Abdominal Exam Abdominal exam: Present soft; Absent distention, tenderness or guarding Extremities Exam Extremities exam: Present normal inspection; Absent edema or joint swelling Back Exam Back exam: Present normal inspection; Absent tenderness Neurological Exam Neurological exam: Present alert and oriented X3; Absent motor sensory deficit Psychiatric Psychiatric exam: Present normal affect and normal mood Skin Skin exam: Present warm, dry and normal color Lymphatic Lymphatic Findings: no adenopathy Medical Decision Making Medical Records Medical records reviewed: Yes I reviewed the patient's medical records. Screening: Per USPSTF and CDC recommendations, given the prevalence of disease in our region, it is our hospital?s policy to screen for HIV and viral Hepatitis for all patients aged 18 and over and those with ongoing risk factors. Mannie Inquiry Pt receiving controlled substance: No Mannie was queried for this patient: No Vital Signs: 08/19/25 01:48 08/19/25 02:42 08/19/25 03:06 Temperature 98 F Temperature Source Oral Pulse Rate 88 85 Pulse Rate [Right Radial] 93 H Respiratory Rate 20 20 20 Blood Pressure 131/56 L 147/68 H Blood Pressure [Right Arm] 181/89 H Blood Pressure Mean [Right Arm] 119 Blood Pressure Source Automatic Cuff Automatic Cuff Blood Pressure Source [Right Arm] Automatic Cuff Blood Pressure Position Sitting Sitting Blood Pressure Position [Right Arm] Sitting 02 Sat by Pulse Oximetry 96 98 97 Oxygen Delivery Method Room Air Room Air Room Air 08/19/25 03:45 08/19/25 05:22 Temperature 98.0 F Temperature Source Oral Pulse Rate 80 80 Pulse Rate [Right Radial] Respiratory Rate 20 20 Blood Pressure 128/61 150/70 H Blood Pressure [Right Arm] Blood Pressure Mean [Right Arm] Blood Pressure Source Automatic Cuff Automatic Cuff Blood Pressure Source [Right Arm] Blood Pressure Position Sitting Sitting Blood Pressure Position [Right Arm] 02 Sat by Pulse Oximetry 98 Oxygen Delivery Method Room Air Room Air Lab Data Lab results reviewed: Yes I reviewed the patient's lab results. Lab Results 08/19/25 01:55: WBC 7.5, RBC 4.38 L, Hgb 12.7 L, Hct 39.5 L, MCV 90.2, MCH 29.0, MCHC 32.2, RDW 13.5, Plt Count 259, MPV 11.5 H, Neut % (Auto) 51.2, Lymph % (Auto) 38.5, Faulk % (Auto) 7.3, Eos % (Auto) 2.0, Baso % (Auto) 0.5, Neut # (Auto) 3.9, Lymph # (Auto) 2.9, Faulk # (Auto) 0.6, Eos # (Auto) 0.2, Baso # (Auto) 0.0, Sodium 138, Potassium 4.5, Chloride 100, Carbon Dioxide 25, Anion Gap 17.5 H, BUN 30 H, Creatinine 1.50 H, Estimated Creat Clear 65, Estimated GFR 45 L, Est GFR ( Amer) 55 L, Glucose 117 H, Calcium 8.9, Magnesium 1.8, Total Bilirubin 0.7, AST 41, ALT 47, Alkaline Phosphatase 90, Troponin I < 0.01, Total Protein 6.9, Albumin 4.2, Globulin 2.7, Albumin/Globulin Ratio 1.6, HCV Ab BERENICE w/Rflx PCR Qn Negative, HIV Ag/Ab Combo Qual Negative 08/19/25 04:40: Troponin I < 0.01 08/19/25 01:55 08/19/25 01:55 Orders (Tests/Meds): ORDERS Category Date Time Status CXR --portable [XR chest portable] Stat Exams 08/19/25 02:06 Completed CBC w/Auto Diff [Complete Blood Count Auto Diff] Stat Lab 08/19/25 01:55 Completed CMP [Comprehensive Metabolic Panel] Stat Lab 08/19/25 01:55 Completed HIV Combo Stat Lab 08/19/25 01:55 Completed Hepatitis C Ab Qual. W/ RFX Stat Lab 08/19/25 01:55 Completed Magnesium Stat Lab 08/19/25 01:55 Completed Troponin I Q3H Lab 08/19/25 01:55 Completed Troponin I Q3H Lab 08/19/25 04:40 Completed ECG Data Tracing #1: I reviewed this ECG and interpreted as documented below: Sinus rhythm, left anterior fascicle block, ventricular rate of 91, no significant ST elevation ECG initial impression date: 08/19/25 ECG initial impression time: 01:47 Medical Decision Narrative: 79-year-old male with history of diabetes and prior stroke presents for brief episode of queasiness and dizziness that resolved spontaneously. History was obtained via interactive discussion with patient, family, chart review. On arrival, patient is [afebrile, hemodynamically stable, satting appropriately, alert, oriented x4, GCS 15], moving all extremities spontaneously. Full physical exam performed and significant for no neurologic deficits. Differential includes but is not limited to vasovagal episode, arrhythmia, stroke. Presentation does not seem consistent with stroke at this time. He certainly has no neurologic deficits on exam and he reports that this does not feel anything like when he has had strokes in the past. He thinks that he has more to do with his stomach being queasy, which is also resolved now. We discussed the utility of CT scans, patient declined. Will obtain labs, EKG chest x-ray. On re-evaluation, patient remains asymptomatic Laboratory workup independently interpreted by me and significant for negative initial troponin, minimal anemia, stable renal function, no significant electrolyte derangement. Imaging independently interpreted by me and significant for clear lungs bilaterally. See radiology read for full review of final results. On reassessment, patient andreina asymptomatic. Repeat troponin returned undetectably low. Given patient history, exam and workup, no obvious emergent pathology noted on workup. I recommended patient get a Holter monitor for possible arrhythmia, but he reports that he is going out of town tomorrow. Recommend he follow-up with PCP/cardiology. He was discharged in stable condition. Procedures Risk/Benefits of Procedure(s) Were Explained: Yes Critical Care Critical Care Time Critical Care Time: No
--- OUTSIDE RECORDS SUMMARY | 2025-08-19 02:10 | XMS_ITS | Clinical Summary ---
Author Organization [facility] Address [address] [place] [address] Care Team Providers Care Retina Subspecialist Name Role Phone Eduardo Keysha DAN Primary Care Provider + [phone] Allergies Active Allergy Reactions Criticality Noted Date Comments Contrast Dye (Echo Or Unknown Ct/Mr) Hives Low 01/25/2022 Gadolinium MRI one single hive Medications atenolol (TENORMIN) 25 MG tablet Take 1 tablet by mouth Daily. Active atorvastatin (LIPITOR) 80 MG tablet Take 1 tablet by mouth Daily. Active vitamin B-12 (CYANOCOBALAMIN) 1000 MCG tablet Take 1 tablet by mouth Daily. Active famotidine (PEPCID) 20 MG tablet Take 1 tablet by mouth 2 (Two) Times a Day. Active glimepiride (AMARYL) 4 MG tablet Take 1 tablet by mouth Every Morning Before Breakfast. 2 tabs qd Active glucose (DEX4) 4 GM chewable tablet Chew 4 tablets As Needed for Low Blood Sugar (as directed for low blood sugar). Active hydroCHLOROthiaz susanne (HYDRODIURIL) 25 MG tablet Take 1 tablet by mouth Every Morning. Active insulin glargine (LANTUS) 100 UNIT/ML injection Inject under the skin into the appropriate area as directed Daily. 20 units under the skin every morning and 58 units every evening Active levothyroxine (SYNTHROID, LEVOTHROID) 75 MCG tablet Take 1 tablet by mouth Daily. Active lisinopril (PRINIVIL,ZESTRI L) 10 MG tablet Take 1 tablet by mouth Daily. Active metFORMIN (GLUCOPHAGE) 1000 MG tablet Take 1 tablet by mouth 2 (Two) Times a Day With Meals. Active aspirin 81 MG EC tablet Take 1 tablet by mouth Daily. Active acetaminophen-co deine (TYLENOL #3) 300-30 MG per tablet 1 Active clopidogrel (PLAVIX) 75 MG tablet Take 1 tablet by mouth Daily. Please hold for 72 hours 30 tablet 2 Active HYDROcodone-acet aminophen (NORCO) 5-325 MG per tabletIndication s:Degenerative disc disease, lumbar Take 1 tablet by mouth Every 4 (Four) Hours As Needed (Pain). 30 tablet 2 Active Additional Information Patient taking differently:1 tablet OralNightly PRN, Pain, Reported on 09/01/2024 methocarbamol (ROBAXIN) 750 MG tablet Take 1 tablet by mouth 4 (Four) Times a Day As Needed for Muscle Spasms. 90 tablet 2 Active Additional Information Patient not taking.Reported on 09/01/2024 gabapentin (NEURONTIN) 600 MG tabletIndication s:Lumbar disc herniation with radiculopathy,Me ralgia paresthetica of left side Take 1 tablet by mouth 3 (Three) Times a Day. 90 tablet 2 Active Additional Information Patient not taking.Reported on 09/01/2024 colchicine 0.6 MG tablet 1 tablet. 3 Active Active Problems Problem Noted Date Diagnosed Date Sciatica of left side 02/02/2022 Meralgia paresthetica of left side 12/26/2021 Degenerative disc disease, lumbar 11/07/2021 Lumbar disc herniation with radiculopathy 2020 Acute CVA 03/17/2020 Overview (03/17/2020): MRI with scattered left MCA territory infarction AND cortical right MCA territory infarcts Dyslipidemia 03/17/2020 Essential hypertension 03/15/2020 Hypothyroidism 03/15/2020 T2DM 03/15/2020 Overview (03/17/2020): Hgb A1c = 8 GERD 03/15/2020 Hx of CVA 03/15/2020 Carotid artery stenosis, symptomatic, left 03/15 Overview (03/18/2020): S/p Lt CEA by Dr. Funes 03/18/20 Morbidly obese 03/15/2020 Immunizations Immunization Administration Dates Next Due COVID-19 (MODERNA) 1st,2nd,3rd Dose Monovalent 0 01/05/2021,12/08/2020 Family History Medical History Relation Name Comments Cancer Father Relation Name Status Comments Father Social History Tobacco Use Types Packs/Day Years Used Date Smoking Tobacco: Former Cigarettes Q uit: 2000 Cigars Smokeless Tobacco: Former Tobacco Cessation:Counseling Given: Not Answered Alcohol Use Standard Drinks/Week Comments Never 0 (1 standard drink = 0.6 oz pur e alcohol) AUDIT-C Answer Date Recorded Q1: How often do you have a drink containing alc ohol? Never 03/15/2020 Average Number of Drinks Not on file Frequency of Binge Drinking Not on file 02/2020 Abuse Screen Answer Date Recorded Feels Unsafe at Home or Work/School no 06/06/2024 Feels Threatened by Someone no 05/13 Does Anyone Try to Keep You From Having Contact with Others or Doing Things Outside Your Home? no 06/06/2024 Physical Signs of Abuse Present no 06/06/2024 Housing Stability Answer Date Recorded Current Living Arrangements Not on file 08/12 Potentially Unsafe Housing Conditions Not on bharath e 08/23/2023 Family and Community Support Answer Devonte e Recorded Help with Day-to-Day Activities Not on file 08/23/2023 Lonely or Isolated Not on file 08/23/2023 Employment Answer Date Recorded Do you want help finding or keeping work or a gabriele b? Not on file 08/23/2023 Disabilities Answer Date Recorded Concentrating, Remembering, or Making Decisions Difficulty Not on file 08/23/2023 Doing Errands Independently Difficulty Not on fi le 08/23/2023 Education Answer Date Recorded Help with school or training? Not on file Preferred Language Not on file 08/23/2023 Sex and Gender Information Value Date Recorded Sex Assigned at Not on file Legal Sex Male 8:35 PM EDT Gender Identity Not on file Sexual Orientation Not on file Last Filed Vital Signs Vital Sign Reading Time Taken Comments Blood Pressure 140/72 09/01/2024 12:16 PM EDT 144/72 Left arm Pulse 75 06/07/2024 12:00 AM EDT Temperature 36.4 C (97.6 F) 09/01/2024 12:16 PM EDT Respiratory Rate 18 06/06/2024 9:11 PM EDT Oxygen Saturation 95% 06/07/2024 12: 00 AM EDT Inhaled Oxygen Concentration - - Weight 110 kg (241 lb 12.8 oz) 09/01/2024 12:16 PM EDT Height 180.3 cm (5' 11 ) 09/01/2024 12: 16 PM EDT Body Mass Index 33.72 09/01/2024 12:16 PM EDT Plan of Treatment Scheduled Procedures Name Priority Associated Diagnoses Date/Ti me LOOP INSERTION Acute CVA (cerebrovascular accident) Health Maintenance Due Date Last Done Comments DIABETIC EYE EXAM 1955 DIABETIC FOOT EXAM 1955 URINE MICROALBUMIN-CREATININ E RATIO (uACR) 1955 Pneumococcal Vaccine 50+ (1 of 2 - PCV) 1965 ZOSTER VACCINE (1 of 2) 1996 TDAP/TD VACCINES (2 - Tdap) 01/13/2007 01/13/1997 ANNUAL WELLNESS VISIT 03/18/2020 HEPATITIS C SCREENING 03/18/2020 RSV Vaccine - Adults (1 - 1- dose 75+ series) 2021 HEMOGLOBIN A1C 05/25/2022 11/25/2021, 11/12, 03/15/2020 INFLUENZA VACCINE 06/12/2025 COVID-19 Vaccine ( season) 2025, 12/08/2020 Medical Devices Implanted Type Area Billing And Insurance Coordinator Device Identifier Shelf Expiration Date Model / Serial / Lot Kt Matrx Floseal Hemo Fast Prep 10ml - [id number] Implanted:Qty : 1 on 03/17/2020 by Joshua Funes MD at [facility] Implant Left: Neck BOOKER [employer] 11/14/2020 [id number] / / [id number] Hemoclip Vasc Horizon [place] 6ct Bl - [id number] Implanted:Qty : 1 on 03/17/2020 by Joshua Funes MD at [facility] Implant Left: Carotid [employer] [id number] / / . Hemoclip Vasc Horizon Shady Sm 6ct Yl - [id number] Implanted:Qty : 1 on 03/17/2020 by Joshua Funes MD at [facility] Implant Left: Carotid [employer] [id number] / / . Hemost Abs Surgicel 4x8in - [id number] Implanted:Qty : 1 on 03/17/2020 by Joshua Funes MD at [facility] Implant Left: Carotid ETHICON DIV OF J AND J 1950 / / . 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 (HCC) Lumbar disc herniation with radiculopathy Degenerative disc disease, lumbar from Last 3 Months or Most Recently Relevant to Health Maintenance Results * (ABNORMAL) Hemoglobin A1c (11/25/2021 12:23 PM EST) Hemoglobin A1C 7.60(H) 4.80 - 5.60 % 11/25/2021 1:00 PM EST [facility] Blood Venipuncture / Unknown 11/25/2021 12:23 PM EST 11/25/2021 12:39 PM EST Narrative [facility] - 11/25/2021 1:00 PM EST Hemoglobin A1C Ranges: Increased Risk for Diabetes 5.7% to 6.4% Diabetes >= 6.5% Diabetic Goal < 7.0% us Kelsey Patton PA-C LAB BLOOD ORDERABLES [place] Result [facility]
[address] [place] [address], from Last 3 Months or Most Recently Relevant to Health Maintenance Insurance [employer]VANT[employer] Advance Directives * CPR (Attempt to Resuscitate) (Latest Code Status on File) Date Activated Date Inactivated Comments 03/15/2020 12:12 AM 03/18/2020 4:42 PM Question Answer Comments Code Status (Patient has no pulse and is not breathing): CPR (Attempt to Resuscitate) Medical Interventions (Patie nt has pulse or is breathing): Full Level Of Support Discussed With: Patient Care Teams Retina Subspecialist Relationship Specialty Start Date End Date Keysha Clark APRN [address] [place] [address] ISAIAS SCHROEDER [id number] PCP - General Internal Medicine 06/06/24
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
[2025-08-19 02:29] LABS: Alanine Aminotransferase 47 U/L (12-78); Albumin Level 4.2 g/dl (3.5-5.0); Albumin/Globulin Ratio 1.6 (1.1-1.8); Alkaline Phosphatase 90 U/L (38-126); Anion Gap 17.5 mEq/L (5-15); Aspartate Amino Transferase 41 U/L (17-59); Bilirubin,Total 0.7 mg/dl (0.2-1.3); Blood Urea Nitrogen 30 mg/dl (9-20); Calcium 8.9 mg/dl (8.4-10.2); Carbon Dioxide 25 mmol/L (22.0-30.0); Chloride 100 mmol/L (98-107); Creatinine Clearance Estimated 65 mL/min (50-200); Creatinine,Serum 1.50 mg/dl (0.66-1.25); Estimated Glomerular Filt Rate 45 ml/min (>60); GFR (African American) 55 ML/MIN (>60); Globulin 2.7 g/dL (1.3-3.2); Glucose 117 mg/dl (74-100); Hematocrit 39.5 % (42.0-52.0); Hemoglobin 12.7 g/dL (14.1-18.0); Immature Granulocytes % 0.5 %; Magnesium 1.8 mg/dl (1.6-2.3); Mean Corpuscular HGB Conc 32.2 g/dL (31.8-35.4); Mean Corpuscular Hemoglobin 29.0 pg (27.0-31.2); Mean Corpuscular Volume 90.2 fl (80-94); Nucleated Red Blood Cells % 0 %; Platelet Count 259 K/mm3 (142-424); Potassium 4.5 mmoL/L (3.5-5.1); Red Blood Count 4.38 M/mm3 (4.60-6.20); Red Cell Distribution Width-SD 44.1 fL; Sodium 138 mmol/L (136-145); Total Protein,Serum 6.9 g/dl (6.3-8.2); White Blood Count 7.5 K/mm3 (4.8-10.8)
[2025-08-19 02:42] VITALS: BP 131/56; PULSE 88; RESP 20; O2SAT 98
[2025-08-19 03:06] VITALS: BP 147/68; PULSE 85; RESP 20; O2SAT 97
[2025-08-19 03:21] LABS: Troponin I < 0.01 ng/ml (0.00-0.034)
[2025-08-19 03:45] VITALS: BP 128/61; PULSE 80; RESP 20; O2SAT 98
[2025-08-19 05:17] LABS: Troponin I < 0.01 ng/ml (0.00-0.034)
[2025-08-19 05:18] LABS: Hepatitis C Ab Qual. W/ RFX NEGATIVE (Negative)
[2025-08-19 05:22] VITALS: BP 150/70; PULSE 80; RESP 20; TEMP 36.7; O2SAT 97
== END 2025-08-19 05:30 | disposition home or self-care (01) ==
PROVIDERS: Emergency Provider Emergency Medicine; PCP Nurse Practitioner Family
DX: R42 Dizziness and giddiness (principal); I44.7 Left bundle-branch block, unspecified; R19.7 Diarrhea, unspecified; I10 Essential (primary) hypertension; E11.9 Type 2 diabetes mellitus without complications; Z86.73 Personal history of transient ischemic attack (TIA), and cerebral infarction without residual deficits; Z79.01 Long term (current) use of anticoagulants; Z79.4 Long term (current) use of insulin
CPT/HCPCS: 71045; 80053; 83735; 84484; 85025; 86803; 87389; 93005; 99283; 99284